=== PATIENT | male | born 1975 | race Caucasian/White ===

== ENCOUNTER 2018-04-13 13:40 | Emergency (ER) | payer OTHER ==
--- NOTE | 2018-04-13 14:31 | ED ---
General Adult HPI - General Chief complaint: ENT Stated complaint: lt ear pain Time Seen by Provider: 04/13/18 13:59 Source: patient, RN notes reviewed Mode of arrival: ambulatory Limitations: no limitations - History of Present Illness Initial comments: 43-year-old male presents to the emergency department for a chief complaint of left ear pain 2 days. Patient admits to noticing drainage from the ear over the past 2 days. Patient denies any decreased hearing. Patient denies any recent swimming or hot tubs. Patient denies history of diabetes. Patient denies pain in the face and neck or head. Patient also states he has had a sore throat and some loss of voice for the past few months. Patient denies a history of seasonal ALLERGIES. Patient denies any difficulty breathing or swallowing. Patient denies any fevers or chills at home. No rashes. Patient has no other complaints at this time including shortness of breath, chest pain, abdominal pain, nausea or vomiting, headache, or visual changes. - Related Data Previous Rx's Medication Instructions Recorded Ibuprofen [Motrin] 600 mg PO Q6HR PRN #20 tab 04/13/18 Loratadine [Claritin] 10 mg PO DAILY #20 tab 04/13/18 Ofloxacin 0.3% Ophth Soln [Ocuflox 10 drops LEFT EAR BID 14 Days ml 04/13/18 Ophth Soln] Allergies Allergy/AdvReac Type Severity Reaction Status Date / Time No Known Allergies Allergy Verified 04/13/18 14:02 Review of Systems ROS Statement: Those systems with pertinent positive or pertinent negative responses have been documented in the HPI. ROS Other: All systems not noted in ROS Statement are negative. Past Medical History Past Medical History: No Reported History History of Any Multi-Drug Resistant Organisms: None Reported Past Surgical History: No Surgical Hx Reported Past Psychological History: No Psychological Hx Reported Smoking Status: Current every day smoker Past Alcohol Use History: None Reported Past Drug Use History: None Reported General Exam Limitations: no limitations General appearance: alert, in no apparent distress Head exam: Present: atraumatic, normocephalic, normal inspection Eye exam: Present: normal appearance ENT exam: Present: normal oropharynx (Oropharynx patent, nonerythematous. Uvula midline. No tonsillar exudates noted bilaterally. No enlarged tonsils.) , mucous membranes moist, TM's normal bilaterally (Tympanic membrane is visualized in the left ear and appears nonerythematous. No erythema noted of the right tympanic membrane as well.). Absent: normal external ear exam ( Patient does have a slightly swollen left ear canal. Mild tenderness to palpation of the tragus. No pain with palpation or traction of the pinna. No drainage noted at this time from the left ear canal.) Neck exam: Present: normal inspection, full ROM. Absent: tenderness, meningismus, lymphadenopathy Respiratory exam: Present: normal lung sounds bilaterally. Absent: respiratory distress, wheezes, rales, rhonchi, stridor Cardiovascular Exam: Present: regular rate, normal rhythm, normal heart sounds. Absent: systolic murmur, diastolic murmur, rubs, gallop, clicks Course Vital Signs 04/13/18 13:59 Temperature 98.7 F Pulse Rate 70 Respiratory 16 Rate Blood Pressure 142/90 O2 Sat by Pulse 99 Oximetry Medical Decision Making - Medical Decision Making 43-year-old male presents to the emergency department for a chief complaint of left ear pain 2 days. Patient admits to some drainage from the right ear over the past 2 days. Patient denies fevers or chills at home. Patient denies pain within the head or face. On exam ear canal does appear mildly edematous but is patent. Tympanic membrane is visualized and is non-erythematous and intact. No drainage at this time. No pain in the mastoid. Patient does have some tenderness with palpation of the tragus, no tenderness with palpation or traction of the pinna. No history of diabetes. Patient likely has an otitis externa. External ear does not appear swollen besides in the ear canal. No signs of cellulitis within the ear canal or external ear. Patient will be treated for otitis externa with antibiotic drops. Patient was also swabbed for strep as he complains of a sore throat. Throat appears nonerythematous, patent , no tonsillar exudates. No difficulty swallowing or breathing. Patient will follow-up with ear nose throat 4 sore throat. He will be also given Claritin if that helps. He is aware he is to return to the emergency department if he has any worsening symptoms with the ear or throat including difficulty swallowing or fever. - Lab Data Lab Results 04/13/18 Range/Units 14:06 Group A Strep Rapid Negative (Negative) Disposition Clinical Impression: Otitis externa Disposition: HOME SELF-CARE Condition: Good Instructions: Otitis Externa (ED) Additional Instructions: Please use ear drops as directed. Please take Claritin to see if that helps with the throat. Use Motrin or Tylenol for pain relief. Follow-up with ear nose throat physician in 1-2 days. If symptoms worsen or you began to experience worsening pain, fever, or difficulty swallowing return to the emergency department. Prescriptions: Ibuprofen [Motrin] 600 mg PO Q6HR PRN #20 tab PRN Reason: Pain Loratadine [Claritin] 10 mg PO DAILY #20 tab Ofloxacin 0.3% Ophth Soln [Ocuflox Ophth Soln] 10 drops LEFT EAR BID 14 Days ml Is patient prescribed a controlled substance at d/c from ED?: No Referrals: Silas Cruz MD [STAFF PHYSICIAN] - 1-2 days Troy Barrios MD [STAFF PHYSICIAN] - 1-2 days Time of Disposition: 14:48
[2018-04-13 14:32] VITALS: BP 142/90; PULSE 70; RESP 16; TEMP 98.7
== END 2018-04-13 14:59 | disposition home or self-care (01) ==
LOC: EC 13:40
DX: H60.92 Unspecified otitis externa, left ear (principal); F17.200 Nicotine dependence, unspecified, uncomplicated
CPT/HCPCS: 87081; 87430; 99283

== ENCOUNTER 2018-05-11 06:07 | Emergency (ER) | payer OTHER ==
[2018-05-11] MEDS ORDERED: ASPIRIN 81 MG PO STA (06:14)
[2018-05-11] MEDS ORDERED: NITROGLYCERIN SL TABS 0.4 MG TAB SUBLINGUAL STA (06:19)
--- NOTE | 2018-05-11 06:21 | ED ---
Chest Pain HPI - General Chief Complaint: Chest Pain Stated Complaint: chest pain Time Seen by Provider: 05/11/18 06:14 Source: patient, RN notes reviewed Mode of arrival: ambulatory Limitations: no limitations - History of Present Illness Initial Comments: This is a 43-year-old male presents emergency Department with chief complaint of right-sided chest pain. Patient states started around 2 AM. He states it did awaken him from his sleep. Patient states that hurts when he takes a deep inspiration or moves. 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 He has no prior cardiac disease denies hypertension hyperlipidemia and diabetes. He is a daily smoker. Patient states that he has no abdominal pain denies any nausea vomiting no diaphoretic episodes denies any back pain. Patient states he has no history of PE or DVT no recent traveling. He states that he essentially has no shortness breath other than her stated deep breath. - Related Data Previous Rx's Medication Instructions Recorded Ibuprofen [Motrin] 600 mg PO Q6HR PRN #20 tab 04/13/18 Loratadine [Claritin] 10 mg PO DAILY #20 tab 04/13/18 Ofloxacin 0.3% Ophth Soln [Ocuflox 10 drops LEFT EAR BID 14 Days ml 04/13/18 Ophth Soln] Ibuprofen [Motrin] 600 mg PO Q8HR PRN #30 tab 05/11/18 Allergies Allergy/AdvReac Type Severity Reaction Status Date / Time Pertussis Vaccines Allergy Unknown Verified 05/11/18 06:12 Review of Systems ROS Statement: Those systems with pertinent positive or pertinent negative responses have been documented in the HPI. ROS Other: All systems not noted in ROS Statement are negative. EKG Findings - EKG Comments: EKG Findings:: EKG performed at 6:17 normal sinus rhythm with a rate of 62 DE 132 QRS 86 QTC/QTC 418/424 Past Medical History Past Medical History: No Reported History History of Any Multi-Drug Resistant Organisms: None Reported Past Surgical History: No Surgical Hx Reported Past Psychological History: No Psychological Hx Reported Smoking Status: Current every day smoker Past Alcohol Use History: Occasional Past Drug Use History: None Reported General Exam Limitations: no limitations General appearance: alert, in no apparent distress Head exam: Present: atraumatic, normocephalic, normal inspection Eye exam: Present: normal appearance, PERRL, EOMI. Absent: scleral icterus, conjunctival injection, periorbital swelling ENT exam: Present: normal exam, normal oropharynx, mucous membranes moist Neck exam: Present: normal inspection, full ROM. Absent: tenderness, meningismus, lymphadenopathy Respiratory exam: Present: normal lung sounds bilaterally, chest wall tenderness (Moderate right anterior chest wall tenderness). Absent: respiratory distress, wheezes, rales, rhonchi, stridor Cardiovascular Exam: Present: regular rate, normal rhythm, normal heart sounds. Absent: systolic murmur, diastolic murmur, rubs, gallop, clicks GI/Abdominal exam: Present: soft, normal bowel sounds. Absent: distended, tenderness, guarding, rebound, rigid Course Vital Signs 05/11/18 05/11/18 05/11/18 06:09 06:48 07:32 Temperature 97.8 F Pulse Rate 65 55 L 52 L Respiratory 18 20 16 Rate Blood Pressure 132/89 128/98 136/94 O2 Sat by Pulse 100 99 100 Oximetry - Reevaluation(s) Reevaluation #1: 05/11/18 07:15 Patient was reevaluated and updated and results at this time. Patient's abdomen was reexamined states has no tenderness the right upper quadrant was informed his liver enzymes are elevated he states he does drink on a daily basis he stated it is in moderation though. Chest Pain [facility] 43-year-old male present emergency department for right-sided chest pain. This is reproducible chest pain worse with deep inspiration. His d-dimer is negative chest x-rays unremarkable. Patient's troponin is negative at this time EKG is unremarkable. This is felt to be chest wall pain consistent with costochondritis. Patient was treated with anti-inflammatories. He was informed his liver enzymes are elevated he'll have them recheck in one week advised to refrain from any Tylenol or alcohol use. Disposition Clinical Impression: Chest wall pain, Costochondritis, acute Disposition: HOME SELF-CARE Condition: Stable Instructions: Costochondritis (ED), Chest Pain (ED) Additional Instructions: Please return to the Emergency Department if symptoms worsen or any other concerns. Prescriptions: Ibuprofen [Motrin] 600 mg PO Q8HR PRN #30 tab PRN Reason: Pain Is patient prescribed a controlled substance at d/c from ED?: No Referrals: Karissa Ma MD [STAFF PHYSICIAN] - 1-2 days Time of Disposition: 07:36
[2018-05-11 06:36] LABS: Basophils % (A) 0 %; Eosinophils # (A) 0.2 k/uL (0-0.7); Eosinophils % (A) 3 %; HGB 15.3 gm/dL (13.0-17.5); Lymphocytes # (A) 1.5 k/uL (1.0-4.8); Lymphocytes % (A) 26 %; MCH 33.7 pg (25.0-35.0); MCHC 33.9 g/dL (31.0-37.0); MCV 99.3 fL (80.0-100.0); Mean Platelet Volume 7.8; Monocytes # (A) 0.5 k/uL (0-1.0); Monocytes % (A) 9 %; Neutrophils # (A) 3.5 k/uL (1.3-7.7); Neutrophils % (A) 59 %; Platelet Count 125 k/uL (150-450); RBC 4.53 m/uL (4.30-5.90); RDW 13.1 % (11.5-15.5); WBC 5.8 k/uL (3.8-10.6)
[2018-05-11 06:49] LABS: D-Dimer 0.23 mg/L FEU (<0.60); INR 1.1 (<1.2); Partial Thromboplastin Time 22.3 sec (22.0-30.0); Prothrombin Time 10.4 sec (9.0-12.0)
[2018-05-11 06:50] LABS: ALT 224 U/L (21-72); AST 199 U/L (17-59); Albumin 4.3 g/dL (3.5-5.0); Alkaline Phosphatase 65 U/L (38-126); Anion Gap 6 mmol/L; Blood Urea Nitrogen 18 mg/dL (9-20); Calcium 9.5 mg/dL (8.4-10.2); Carbon Dioxide 28 mmol/L (22-30); Chloride 106 mmol/L (98-107); Glucose 103 mg/dL (74-99); Magnesium 1.8 mg/dL (1.6-2.3); Potassium 4.3 mmol/L (3.5-5.1); Sodium 140 mmol/L (137-145); Total Bilirubin 0.3 mg/dL (0.2-1.3); Total Protein 7.9 g/dL (6.3-8.2)
[2018-05-11 06:59] LABS: Creatine Kinase 83 U/L (55-170)
[2018-05-11 07:11] LABS: Creatine Kinase MB 0.9 ng/mL (0.0-2.4); Troponin I <0.012 ng/mL (0.000-0.034)
[2018-05-11] MEDS ORDERED: KETOROLAC 30 MG/ML 1 ML VIAL IVP STA (07:15)
--- NOTE | 2018-05-11 07:29 | XR ---
EXAMINATION TYPE: XR chest 2V DATE OF EXAM: 05/11/2018 COMPARISON: 09/13/2013 HISTORY: 43-year-old male with chest pain and difficulty breathing today TECHNIQUE: PA and lateral views FINDINGS: The cardiomediastinal silhouette, aorta, and pulmonary vasculature are within normal limits. Increase d retrosternal clear space suggesting hyperinflation. Lungs and pleural spaces are clear. IMPRESSION: Hyperinflation could relate to depth of inspiration or underlying emphysema. Clinically correlate. Ot herwise, no acute cardiopulmonary process.
[2018-05-11 07:33] VITALS: BP 136/94; PULSE 52; RESP 16
[2018-05-11 07:53] VITALS: TEMP 98
== END 2018-05-11 07:52 | disposition home or self-care (01) ==
LOC: EC 06:07
DX: M94.0 Chondrocostal junction syndrome [Tietze] (principal); R94.5 Abnormal results of liver function studies; F17.200 Nicotine dependence, unspecified, uncomplicated; Z88.7 Allergy status to serum and vaccine
CPT/HCPCS: 99285; 96374; 36415; 93005; 85379; 80053; 82550; 82553; 83735; 84484; 85025; 85610; 85730; 71046; J1885

== ENCOUNTER 2021-06-06 11:06 | Emergency (ER) | payer OTHER ==
[2021-06-06 11:45] VITALS: BP 147/92; PULSE 70; RESP 18; TEMP 98
--- NOTE | 2021-06-06 12:24 | XR ---
EXAMINATION TYPE: XR hand complete RT DATE OF EXAM: 06/06/2021 COMPARISON: NONE HISTORY: Pain TECHNIQUE: Three views are submitted. FINDINGS: The osseous structures are intact. The joint spaces are preserved and there is no acute fracture or dislocation. IMPRESSION: 1. No definite acute fracture or dislocation if symptoms persist, follow-up study in 7 to 10 days wo uld be suggested
--- NOTE | 2021-06-06 12:45 | ED ---
General Adult HPI - General Chief complaint: Extremity Injury, Upper Stated complaint: rt hand injury Time Seen by Provider: 06/06/21 11:52 Source: patient Mode of arrival: ambulatory Limitations: no limitations - History of Present Illness Initial comments: 46-year-old male presents to emergency department with a chief complaint of right hand injury. This occurred about one hour prior to arrival. Patient reports he smashed his right hand while he was working on a deck. Patient reports most of the pain is located in his third and fourth digits. States he is not able to fully close a but is able to move it. Denies any numbness or tingling. Denies any pain in the mid hand of the region. Denies any wrist pain or injury. Denies any associated ecchymosis. - Related Data Previous Rx's Medication Instructions Recorded Ibuprofen [Motrin] 600 mg PO Q6HR PRN #20 tab 04/13/18 Loratadine [Claritin] 10 mg PO DAILY #20 tab 04/13/18 Ofloxacin 0.3% Ophth Soln [Ocuflox 10 drops LEFT EAR BID 14 Days ml 04/13/18 Ophth Soln] Ibuprofen [Motrin] 600 mg PO Q8HR PRN #30 tab 05/11/18 Allergies Allergy/AdvReac Type Severity Reaction Status Date / Time Pertussis Vaccines Allergy Unknown Verified 06/06/21 11:45 Review of Systems ROS Statement: Those systems with pertinent positive or pertinent negative responses have been documented in the HPI. ROS Other: All systems not noted in ROS Statement are negative. Past Medical History Past Medical History: No Reported History History of Any Multi-Drug Resistant Organisms: None Reported Past Surgical History: No Surgical Hx Reported Past Psychological History: No Psychological Hx Reported Smoking Status: Current every day smoker Past Alcohol Use History: Occasional Past Drug Use History: None Reported General Exam Limitations: no limitations General appearance: alert, in no apparent distress Head exam: Present: atraumatic, normocephalic, normal inspection Eye exam: Present: normal appearance, PERRL, EOMI Pupils: Present: normal accommodation ENT exam: Present: normal exam, normal oropharynx, mucous membranes moist Neck exam: Present: normal inspection, full ROM. Absent: tenderness, lymphadenopathy Respiratory exam: Present: normal lung sounds bilaterally. Absent: respiratory distress Cardiovascular Exam: Present: regular rate, normal rhythm, normal heart sounds Extremities exam: Present: normal inspection, tenderness (Tenderness at the third and fourth digits of the right hand. No scaphoid tenderness. No tenderness along the middle of the hand on the MCP joints.), normal capillary refill. Absent: full ROM (Limited range of motion in the third and fourth digits. Full range of motion and the rest), pedal edema, joint swelling, calf tenderness Back exam: Present: normal inspection, full ROM. Absent: tenderness Neurological exam: Present: alert, oriented X3 Psychiatric exam: Present: normal affect, normal mood Skin exam: Present: warm, dry, intact, normal color Course Vital Signs 06/06/21 11:43 Temperature 98.0 F Pulse Rate 70 Respiratory 18 Rate Blood Pressure 147/92 O2 Sat by Pulse 97 Oximetry Medical Decision Making - Medical Decision Making 46-year-old male presents to emergency Department with chief complaint right hand injury. Physical examination, most of the pain is started the third and fourth digits. He is otherwise neurovascularly intact. X-ray of the right hand is unremarkable. Patient suffered a contusion to the hand. Advised to follow with his primary care physician or data capture specialist. Return parameters were thoroughly discussed with patient was up standing and agreeable. Disposition Clinical Impression: Injury of right hand Disposition: HOME SELF-CARE Condition: Stable Instructions (If sedation given, give patient instructions): Hand Sprain (ED) Additional Instructions: Please return to the Emergency Department if symptoms worsen or any other concerns. Is patient prescribed a controlled substance at d/c from ED?: No Referrals: None,Stated [Primary Care Provider] - 1-2 days Time of Disposition: 12:45
== END 2021-06-06 13:00 | disposition home or self-care (01) ==
LOC: EC 11:06
DX: S69.91XA Unspecified injury of right wrist, hand and finger(s), initial encounter (principal); F17.200 Nicotine dependence, unspecified, uncomplicated; Z79.1 Long term (current) use of non-steroidal anti-inflammatories (NSAID); Z79.899 Other long term (current) drug therapy; W22.8XXA Striking against or struck by other objects, initial encounter; Y99.0 Civilian activity done for income or pay
CPT/HCPCS: 99283

== ENCOUNTER 2022-07-16 10:56 | Inpatient (IN) | payer OTHER ==
--- NOTE | 2022-07-16 12:36 | XR ---
EXAMINATION TYPE: XR KUB DATE OF EXAM: 07/16/2022 COMPARISON: NONE HISTORY: Pain TECHNIQUE: Single supine KUB image of the abdomen is obtained FINDINGS: Small bowel demonstrates no evidence for dilatation or air fluid levels. Gas and fecal material is seen in non-distended colon. No convincing evidence for pneumoperitoneum. No unusual calcifications. The lung bases are clear. The osseous structures are intact. IMPRESSION: 1. Overall nonobstructive bowel gas pattern.
[2022-07-16 12:44] LABS: Basophils % (A) 0 %; Eosinophils # (A) 0.1 k/uL (0-0.7); Eosinophils % (A) 2 %; HCT 46.2 % (39.0-53.0); HGB 15.7 gm/dL (13.0-17.5); Lymphocytes # (A) 2.1 k/uL (1.0-4.8); Lymphocytes % (A) 33 %; MCH 34.9 pg (25.0-35.0); MCHC 33.9 g/dL (31.0-37.0); MCV 102.8 fL (80.0-100.0); Macrocytosis Slight; Monocytes # (A) 0.5 k/uL (0-1.0); Monocytes % (A) 8 %; Neutrophils # (A) 3.5 k/uL (1.3-7.7); Neutrophils % (A) 54 %; Platelet Count 104 k/uL (150-450); RDW 13.2 % (11.5-15.5); WBC 6.4 k/uL (3.8-10.6)
[2022-07-16 12:51] LABS: ALT 159 U/L (4-49); AST 157 U/L (17-59); African American GFR (CKD) >90 (>60 ml/min/1.73 sqM); Albumin 4.1 g/dL (3.5-5.0); Alkaline Phosphatase 93 U/L (38-126); Anion Gap 13 mmol/L; Blood Urea Nitrogen 18 mg/dL (9-20); Calcium 8.8 mg/dL (8.4-10.2); Carbon Dioxide 26 mmol/L (22-30); Chloride 100 mmol/L (98-107); Glucose 99 mg/dL (74-99); Non-African American GFR(CKD) >90 (>60 ml/min/1.73 sqM); Potassium 3.9 mmol/L (3.5-5.1); Sodium 139 mmol/L (137-145); Total Bilirubin 0.5 mg/dL (0.2-1.3); Total Protein 7.6 g/dL (6.3-8.2)
[2022-07-16 13:06] LABS: Amylase 392 U/L (30-110)
[2022-07-16 13:18] LABS: Lipase 12006 U/L (23-300)
--- NOTE | 2022-07-16 14:30 | ED ---
Abdominal Pain HPI - General Chief Complaint: Abdominal Pain Stated Complaint: rt sided pain Time Seen by Provider: 07/16/22 13:21 Source: patient, RN notes reviewed Mode of arrival: ambulatory Limitations: no limitations - History of Present Illness Initial Comments: 47-year-old male with a benign past medical history who does complain of abdominal pain going on for about a week. He states that sharp and severe in nature mostly right upper quadrant no overt nausea vomiting he states pain is becoming unbearable. He does admit to drinking alcohol between 1 and 2 pints today perhaps up to a fifth a day he also smokes one pack cigarettes per day. Prior history of any GI abnormality no history of alcohol withdrawal no history of any intra-abdominal pathologies that he is aware of. No prior history of pancreatitis and dysuria hematuria. MD Complaint: abdominal pain - Related Data Previous Rx's Medication Instructions Recorded Ibuprofen [Motrin] 600 mg PO Q6HR PRN #20 tab 04/13/18 Loratadine [Claritin] 10 mg PO DAILY #20 tab 04/13/18 Ofloxacin 0.3% Ophth Soln [Ocuflox 10 drops LEFT EAR BID 14 Days ml 04/13/18 Ophth Soln] Ibuprofen [Motrin] 600 mg PO Q8HR PRN #30 tab 05/11/18 Allergies Allergy/AdvReac Type Severity Reaction Status Date / Time Pertussis Vaccines Allergy Unknown Verified 07/16/22 11:27 Review of Systems ROS Statement: Those systems with pertinent positive or pertinent negative responses have been documented in the HPI. ROS Other: All systems not noted in ROS Statement are negative. Past Medical History Past Medical History: No Reported History History of Any Multi-Drug Resistant Organisms: None Reported Past Surgical History: No Surgical Hx Reported, Hernia Repair Past Psychological History: No Psychological Hx Reported Smoking Status: Current every day smoker Past Alcohol Use History: Occasional Past Drug Use History: None Reported General Exam - General Exam Comments Initial Comments: This is a well-developed well-nourished awake alert oriented 6 male Limitations: no limitations General appearance: alert, anxious, in distress Head exam: Present: atraumatic, normocephalic, normal inspection Eye exam: Present: normal appearance, PERRL, EOMI. Absent: scleral icterus, conjunctival injection, periorbital swelling ENT exam: Present: normal exam, mucous membranes moist Neck exam: Present: normal inspection, full ROM. Absent: tenderness, meningismus, lymphadenopathy Respiratory exam: Present: normal lung sounds bilaterally. Absent: respiratory distress, wheezes, rales, rhonchi, stridor Cardiovascular Exam: Present: regular rate, normal rhythm, normal heart sounds. Absent: systolic murmur, diastolic murmur, rubs, gallop, clicks GI/Abdominal exam: Present: soft, tenderness (Right upper quadrant tenderness palpation about her guarding no rebound), normal bowel sounds. Absent: distended, guarding, rebound, rigid Rectal exam: Present: deferred Extremities exam: Present: normal inspection, full ROM, normal capillary refill. Absent: tenderness, pedal edema, joint swelling, calf tenderness Back exam: Present: normal inspection Neurological exam: Present: alert, oriented X3, CN II-XII intact Psychiatric exam: Present: normal affect, anxious Skin exam: Present: warm, dry, intact, normal color. Absent: rash Course Vital Signs 07/16/22 07/16/22 11:24 14:01 Temperature 98.3 F Pulse Rate 65 65 Respiratory 18 18 Rate Blood Pressure 152/77 142/93 O2 Sat by Pulse 99 98 Oximetry Procedures - Phillips Protocol (Time Out) Nurse: Aldo Capellan Medical Decision Making - Medical Decision Making I did discuss the findings with patient as well as Dr. Gaspar. Patient does have evidence of acute pancreatitis also alcohol abuse. Patient be admitted with GI consultation - Lab Data Result diagrams: 07/16/22 12:28 07/16/22 12:28 Lab Results 07/16/22 07/16/22 Range/Units 12:28 12:28 WBC 6.4 (3.8-10.6) k/uL RBC 4.50 (4.30-5.90) m/uL Hgb 15.7 (13.0-17.5) gm/dL Hct 46.2 (39.0-53.0) % MCV 102.8 H (80.0-100.0) fL MCH 34.9 (25.0-35.0) pg MCHC 33.9 (31.0-37.0) g/dL RDW 13.2 (11.5-15.5) % Plt Count 104 L (150-450) k/uL MPV 9.0 Neutrophils % 54 % Lymphocytes % 33 % Monocytes % 8 % Eosinophils % 2 % Basophils % 0 % Neutrophils # 3.5 (1.3-7.7) k/uL Lymphocytes # 2.1 (1.0-4.8) k/uL Monocytes # 0.5 (0-1.0) k/uL Eosinophils # 0.1 (0-0.7) k/uL Basophils # 0.0 (0-0.2) k/uL Macrocytosis Slight Sodium 139 (137-145) mmol/L Potassium 3.9 (3.5-5.1) mmol/L Chloride 100 (98-107) mmol/L Carbon Dioxide 26 (22-30) mmol/L Anion Gap 13 mmol/L BUN 18 (9-20) mg/dL Creatinine 1.00 (0.66-1.25) mg/dL Est GFR (CKD-EPI)AfAm >90 (>60 ml/min/1.73 sqM) Est GFR (CKD-EPI)NonAf >90 (>60 ml/min/1.73 sqM) Glucose 99 (74-99) mg/dL Calcium 8.8 (8.4-10.2) mg/dL Total Bilirubin 0.5 (0.2-1.3) mg/dL AST 157 H (17-59) U/L ALT 159 H (4-49) U/L Alkaline Phosphatase 93 (38-126) U/L Total Protein 7.6 (6.3-8.2) g/dL Albumin 4.1 (3.5-5.0) g/dL Amylase 392 H* (30-110) U/L Lipase 41502 H (23-300) U/L - Radiology Data Radiology results: report reviewed (I did review the KUB imaging and report no acute findings ultrasound pending at this time), image reviewed Disposition Clinical Impression: Abdominal pain, Acute pancreatitis, Alcohol abuse, Nicotine dependence Disposition: ADMITTED IP TO THIS [facility] Condition: Fair Referrals: None,Stated [Primary Care Provider] - 1-2 days Decision Date: 07/16/22 Decision Time: 14:33
[2022-07-16] MEDS ORDERED: HYDROmorphone 1 MG/ML 1 ML SYRINGE IVP STA (14:33)
[2022-07-16] MEDS ORDERED: NALOXONE 0.4 MG/ML 1 ML VIAL IV PRN (14:34)
[2022-07-16] MEDS ORDERED: ONDANSETRON 4 MG/2 ML VIAL IVP PRN (14:34)
[2022-07-16] MEDS ORDERED: THIAMINE 100 MG/ML 2 ML VIAL IM STA (14:35)
[2022-07-16] MEDS ORDERED: LORazepam 2 MG/ML INJ IV PRN ×3 (14:35)
[2022-07-16] MEDS ORDERED: NICOTINE 21MG/24HR PATCH TRANSDERM STA (14:36)
--- NOTE | 2022-07-16 14:41 | US ---
EXAMINATION TYPE: US gallbladder DATE OF EXAM: 07/16/2022 COMPARISON: NONE CLINICAL HISTORY: Right upper quadrant pain with pancreatitis. TECHNIQUE: Multiple sonographic images of the right upper quadrant are obtained. FINDINGS: EXAM MEASUREMENTS: Liver Length: 16.2 cm Gallbladder Wall: 0.2 cm CBD: 0.3 cm Right Kidney: 10.9 x 4.5 x 5.3 cm [employer]ERNOR [employer] NOTES: Pancreas: Tail obscured by overlying bowel gas Liver: wnl Gallbladder: possible small amount of sludge Evidence for sonographic Maya's sign: no CBD: wnl Right Kidney: inferior pole obscured by overlying bowel gas IMPRESSION: 1. Gallbladder sludge.
[2022-07-16] MEDS: SODIUM CHLORIDE 0.9% 1,000 ML IV SCH (14:50)
[2022-07-16] MEDS: THIAMINE 100 MG TAB PO SCH (18:07)
[2022-07-16] MEDS: HYDROmorphone 0.5 MG/0.5 ML SYRINGE IVP PRN (20:26)
[2022-07-17] MEDS: SODIUM CHLORIDE 0.9% 1,000 ML IV SCH (04:57)
[2022-07-17 07:45] VITALS: TEMP 98.4
[2022-07-17] MEDS: HYDROmorphone 0.5 MG/0.5 ML SYRINGE IVP PRN (07:58)
[2022-07-17] MEDS: THIAMINE 100 MG TAB PO SCH (07:58)
[2022-07-17] MEDS ORDERED: PANTOPRAZOLE 40 MG/10 ML VIAL IV SCH (09:00)
--- NOTE | 2022-07-17 11:04 | P.HPIM ---
History of Present Illness H&P Date: 07/16/22 Chief Complaint: Abdominal pain Patient is a 47-year-old male with a known history of daily alcohol use, currently every day smoker and marijuana use an GERD presents to ER with complaints of abdominal pain. Past 1 week. Abdominal pain is mainly in the epigastric region and sharp radiating to the back and to the right upper quadrant. Assessment with nausea and ulcers of vomiting. Patient has been drinking 1-2 pints of alcohol on a daily basis and also smokes about 1 pack per day. Denied any prior history of pancreatitis. Denied any diarrhea. No headache or dizziness. No fever no chills. No cough or sputum production. No chest pain or shortness of breath. Denied any dysuria or hematuria. KUB x-ray showed overall nonobstructive bowel gas pattern. Ultrasound gallbladder showed gallbladder sludge. Laboratory data showed a 6.4 hemoglobin 15.7 platelets 104 and MCV 102.8 Sodium 139 potassium 3.9 chloride 100 bicarb is 26 BUN 18 and creatinine 1.0 and AST 157 ALT 159, and alk phos 93 Lipase 12 006 and amylase 392 and serum alcohol is less than 10. Review of Systems Constitutional: Patient denies any fever or chills . No generalized weakness or weight loss. Abdomen: Patient does have abdominal pain associated nausea and no vomiting no diarrhea.. Cardiovascular: Patient denies any chest pain or short of breath no palpitations. Respiratory: patient denied any cough is from production. No shortness of b reath Neurologic: Patient denied any numbness or tingling headache. Musculoskeletal: Patient denies any complaints of joint swelling or deformity. Skin: Negative Psychiatric: Negative Endocrine: No heat or cold intolerance. No recent weight gain. Genitourinary: No dysuria or hematuria. All other 14 point ROS negative except the above Past Medical History Past Medical History: GERD/Reflux Additional Past Medical History / Comment(s): ETOH, current smoker History of Any Multi-Drug Resistant Organisms: None Reported Past Surgical History: Hernia Repair Additional Past Surgical History / Comment(s): 2 hernia repairs one on the right lower abdomen, one on the left lower abdomen. Past Anesthesia/Blood Transfusion Reactions: No Reported Reaction Past Psychological History: No Psychological Hx Reported Smoking Status: Current every day smoker Past Alcohol Use History: Daily, Heavy Past Drug Use History: Marijuana Additional Drug Use History / Comment(s): pt states he drinks 2 pints to 1/5th of black velvet whiskey per day, last drink was yesterday 07/15. Pt states he only drank about 1/2 a pint to a pint yesterday and the day before because of the abdominal pain he was having. Smokes marijuana daily - Past Family History Father Family Medical History: Myocardial Infarction ([place]) Additional Family Medical History / Comment(s): Father and grandfather both from heart attacks Medications and Allergies Home Medications Medication Instructions Recorded Confirmed Type No Known Home Medications 07/16/22 07/16/22 History Allergies Allergy/AdvReac Type Severity Reaction Status Date / Time Pertussis Vaccines Allergy Unknown Verified 07/16/22 15:39 Physical Exam Vitals: Vital Signs Temp Pulse Pulse Resp BP BP Pulse Ox 07/16/22 20:00 98.0 F 53 L 16 144/87 96 07/16/22 16:04 98.4 F 64 18 146/97 97 07/16/22 14:01 65 18 142/93 98 07/16/22 11:24 98.3 F 65 18 152/77 99 Intake and Output 07/16/22 07/16/22 07/16/22 06:59 14:59 22:59 Intake Total 0 Balance 0 Intake: Oral 0 Other: # Voids 1 Weight 90.718 kg 90.718 kg PHYSICAL EXAMINATION: Patient is lying in the bed comfortably, no acute distress, awake alert and oriented.. HEENT: Normocephalic. Neck is supple. Pupils reactive. Nostrils clear. Oral cavity is moist. Neck reveals no JVD, carotid bruits, or thyromegaly. CHEST EXAMINATION: Trachea is central. Symmetrical expansion. Lung cheung clear to auscultation and percussion. CARDIAC: Normal S1, S2 with no gallops. No murmurs ABDOMEN: Soft. Bowel sounds normal. No organomegaly. No abdominal bruits. Epigastric abdominal tenderness. No guarding no rigidity. Extremities: reveal no edema. No clubbing or cyanosis Neurologically awake, alert, oriented x3 with well-coordinated movements. No focal deficits noted Skin: No rash or skin lesions. Psychiatric: Coperative. Nonsuicidal Musculoskeletal: No joint swelling or deformity. Normal range of motion. Results CBC & Chem 7: 07/16/22 12:28 07/16/22 12:28 Labs: Abnormal Lab Results - Last 24 Hours (Table) 07/16/22 07/16/22 Range/Units 12:28 12:28 MCV 102.8 H (80.0-100.0) fL Plt Count 104 L (150-450) k/uL AST 157 H (17-59) U/L ALT 159 H (4-49) U/L Amylase 392 H* (30-110) U/L Lipase 35905 H (23-300) U/L Thrombosis Risk Factor Assmnt - DVT/VTE Prophylaxis DVT/VTE Prophylaxis: Pharmacologic Prophylaxis ordered - Choose All That Apply Each Factor Represents 1 point: Age 41-60 years, Obesity (BMI >25) Thrombosis Risk Factor Assessment Total Risk Factor Score: 2 Thrombosis Risk Factor Assessment Level: Low Risk Assessment and Plan Assessment: Acute pancreatitis likely alcohol-related Macrocytosis and thrombocytopenia secondary to chronic alcohol use GERD Ongoing nicotine addiction Alcohol abuse Marijuana use DVT prophylaxis with heparin subcu Plan: Patient be current on IV hydration and pain management and nothing by mouth until pain improves. IN the abdomen showed gallbladder sludge. Follow-up closely and CBC and CMP tomorrow. Smoking cessation and alcohol abstinence has been counseled extensively.
[2022-07-17 11:13] LABS: African American GFR (CKD) 124.1 (60.0-200.0); Anion Gap 8.9 mmol/L (10.00-18.00); BUN/Creat Ratio 19.26 Ratio (12.00-20.00); Blood Urea Nitrogen 15.7 mg/dL (9.0-27.0); Calcium 8.2 mg/dL (8.7-10.3); Carbon Dioxide 23.7 mmol/L (20.0-27.5); Non-African American GFR(CKD) 107.1 (60.0-200.0)
[2022-07-17 12:57] LABS: Basophils # (A) 0.02 X 10*3/uL (0.00-0.10); Basophils % (A) 0.4 %; Eosinophils # (A) 0.12 X 10*3/uL (0.04-0.35); Eosinophils % (A) 2.5 %; HCT 41.8 % (39.6-50.0); HGB 14.9 g/dL (13.0-17.0); Immature Grans, Automated 0.2 %; Lymphocytes # (A) 2.23 X 10*3/uL (0.90-5.00); Lymphocytes % (A) 45.8 %; MCH 35.9 pg (27.0-32.0); MCHC 35.6 g/dL (32.0-37.0); MCV 100.7 fL (80.0-97.0); Monocytes # (A) 0.43 X 10*3/uL (0.20-1.00); Monocytes % (A) 8.8 %; NRBC Per 100 WBC 0 /100 WBCS (0.0-0.0); Neutrophils # (A) 2.06 X 10*3/uL (1.80-7.70); Neutrophils % (A) 42.3 %; Platelet Count 87 X 10*3/uL (140-440); RBC 4.15 X 10*6/uL (4.40-5.60); RDW 13.2 % (11.5-14.5); WBC 4.87 X 10*3/uL (4.50-10.00)
[2022-07-17 12:59] LABS: RBC Morphology NORMAL
[2022-07-17 14:16] VITALS: BP 134/92; PULSE 64; RESP 16
[2022-07-17 14:38] LABS: Total Bilirubin 0.6 mg/dL (0.30-1.20)
--- NOTE | 2022-07-17 16:39 | P.CONS ---
History of Present Illness - Reason for Consult Consult date: 07/17/22 Acute pancreatitis Requesting physician: Julio Correa - Chief Complaint Right upper quadrant/epigastric pain - History of Present Illness This is a pleasant 47-year-old male who presented to the emergency department yesterday morning with complaints of right upper quadrant/epigastric pain. Patient states it was sharp in nature and radiated to his back. Pain started on Friday or Friday and progressively has gotten worse. Had denied any nausea or vomiting associated with it. Denies any previous history of pancreatitis, no new medications and no history of gallbladder disease. Patient was noted to have elevated amylase and lipase consistent with pancreatitis. Gastroenterology was consulted for the above. Ultrasound of the gallbladder showed gallbladder sludge. CBD was within normal limits and no stones were noted. Total bilirubin 0.5 AST 157 ALT 159 alkaline phosphatase 93 amylase 392 on admission and lipase 1206. Patient does admit to being a daily drinker, drinks 2 pints to a fifth a day for the last 5-6 years. He is also occurring daily smoker. No other significant past medical history. Today he states pain has improved it is a 4 out of 5, no nausea or vomiting. He has been nothing by mouth except ice chips. WBC 4.8 hemoglobin 14.9 hematocrit 41 platelet count 87,000 sodium 138 potassium 4.0 BUN 15 creatinine 0.8 total bilirubin 0.6 AST 101 ALT 117 alkaline phosphatase 80 lipase 156 Review of Systems REVIEW OF SYSTEMS: CARDIOPULMONARY: No chest pain or shortness of breath. Gastrointestinal: Epigastric and right upper quadrant pain, radiating to back. No nausea or vomiting. No hematemesis, coffee-ground emesis. No rectal bleeding, or melena. GENITOURINARY: No dysuria or hematuria. MUSCULOSKELETAL: Reports normal range of motion. SKIN: No rashes. No jaundice. ENDOCRINE: No chills, fevers. No excessive weight gain or loss. No polydipsia or polyuria. PSYCHIATRIC: Unremarkable. NEUROLOGY: No change in mental status. Denies dizziness, headache. ENT: Vision unremarkable. CONSTITUTIONAL: No recent weight loss. No fever, chills, night sweats. Past Medical History Past Medical History: GERD/Reflux Additional Past Medical History / Comment(s): ETOH, current smoker History of Any Multi-Drug Resistant Organisms: None Reported Past Surgical History: Hernia Repair Additional Past Surgical History / Comment(s): 2 hernia repairs one on the right lower abdomen, one on the left lower abdomen. Past Anesthesia/Blood Transfusion Reactions: No Reported Reaction Past Psychological History: No Psychological Hx Reported Smoking Status: Current every day smoker Past Alcohol Use History: Daily, Heavy Past Drug Use History: Marijuana Additional Drug Use History / Comment(s): pt states he drinks 2 pints to 1/5th of black velvet whiskey per day, last drink was yesterday 07/15. Pt states he only drank about 1/2 a pint to a pint yesterday and the day before because of the abdominal pain he was having. Smokes marijuana daily - Past Family History Father Family Medical History: Myocardial Infarction ([place]) Additional Family Medical History / Comment(s): Father and grandfather both from heart attacks Medications and Allergies Home Medications Medication Instructions Recorded Confirmed Type Multivitamins, Thera [Multivitamin 1 tab PO DAILY #30 tablet 07/17/22 Rx (formulary)] Thiamine [Vitamin B-1] 100 mg PO DAILY #30 tab 07/17/22 Rx Allergies Allergy/AdvReac Type Severity Reaction Status Date / Time Pertussis Vaccines Allergy Unknown Verified 07/16/22 15:39 Physical Exam Vitals: Vital Signs Temp Pulse Pulse Resp BP BP Pulse Ox 07/17/22 08:04 56 L 17 07/17/22 07:44 98.4 F 56 L 17 163/103 98 07/17/22 01:43 97.7 F 54 L 16 123/78 99 07/16/22 20:00 98.0 F 53 L 16 144/87 96 07/16/22 16:04 98.4 F 64 18 146/97 97 07/16/22 14:01 65 18 142/93 98 07/16/22 11:24 98.3 F 65 18 152/77 99 Intake and Output 07/16/22 07/17/22 07/17/22 22:59 06:59 14:59 Intake Total 0 Balance 0 Intake: Oral 0 Other: Voiding Method Toilet Toilet Urinal Urinal # Voids 1 3 Weight 90.718 kg General appearance: The patient is alert, oriented, appears in no acute distress. HET: Head is normocephalic and atraumatic. Conjunctiva pink. Sclera anicteric. Neck: Supple without lymphadenopathy. Trachea midline. Heart: S1 S2. Regular rate and rhythm. Lungs: Clear to auscultation. Abdomen: Soft, mild right upper quadrant tenderness, nondistended with bowel sounds. No guarding or rigidity. Skin: No rashes. No jaundice. Extremities: Normal skin color and turgor. No pedal edema. Neurological: No focal deficits. Alert and oriented x3. Results CBC & Chem 7: 07/17/22 06:23 07/17/22 06:23 Labs: Abnormal Lab Results - Last 24 Hours (Table) 07/16/22 07/16/22 Range/Units 12:28 12:28 MCV 102.8 H (80.0-100.0) fL Plt Count 104 L (150-450) k/uL AST 157 H (17-59) U/L ALT 159 H (4-49) U/L Amylase 392 H* (30-110) U/L Lipase 36321 H (23-300) U/L Abdominal x-ray: report reviewed (Overall nonobstructive bowel gas pattern) US - abdomen: report reviewed (Gallbladder sludge, CBD 0.3 cm.) Assessment and Plan (1) Acute pancreatitis Narrative/Plan: 47-year-old male with a history of significant alcohol abuse. Patient a dmittedly drinks 2 pints to a fifth of liquor daily for last 5-6 years duration. Presented with acute onset of epigastric/right upper quadrant pain which progressively got worse. He came in for further evaluation was noted to have elevated AST, ALT as well as amylase and lipase consistent with acute pancreatitis. The patient's history of alcohol abuse likely were dealing with acute alcohol pancreatitis. Symptoms are now resolving. Discussed with patient importance of alcohol abstinence, smoking cessation. Current Visit: Yes Status: Acute Code(s): K85.90 - ACUTE PANCREATITIS WITHOUT NECROSIS OR INFECTION, UNSP SNOMED Code(s): 280706417 (2) Alcohol abuse Current Visit: Yes Status: Acute Code(s): F10.10 - ALCOHOL ABUSE, UNCOMPLICATED SNOMED Code(s): 78442093 (3) Nicotine dependence Current Visit: Yes Status: Acute Code(s): F17.200 - NICOTINE DEPENDENCE, UNSPECIFIED, UNCOMPLICATED SNOMED Code(s): 51380277 (4) Thrombocytopenia Narrative/Plan: Likely related to underlying liver disease from alcohol abuse Current Visit: Yes Status: Acute Code(s): D69.6 - THROMBOCYTOPENIA, UNSPECIFIED SNOMED Code(s): 105189985 Plan: 1. Continue symptomatic and supportive care 2. Advance diet slowly as tolerated, low-fat diet 3. Antiemetics as needed 4. Pain medication as needed 5. Alcohol as tendons 6. Smoking cessation 7. Encourage ambulation Thank you for this consultation, patient is cleared for discharge from gastroenterology. Discussed with patient advance diet slowly over the next 1 week duration with a low-fat diet. Will need outpatient follow-up in 2-[address]FTs. Dr[address] Demetri Hall I agree with the dictator's note, documented as a scribe by Briseida Kay.
--- NOTE | 2022-07-24 15:15 | P.DS ---
Providers Date of admission: 07/16/22 14:34 Expected date of discharge: 07/17/22 Attending physician: Dominga Gaspar Consults: 07/16/22 14:34 Consult Physician Routine Consulting Provider: Lornea Hall Consult Reason/Comments: Acute pancreatitis Do you want consulting provider notified?: Yes Primary care physician: Stated None Hospital Course: Discharge diagnosis Acute pancreatitis likely alcohol-related Macrocytosis and thrombocytopenia secondary to chronic alcohol use GERD Ongoing nicotine addiction Alcohol abuse Marijuana use DVT prophylaxis with heparin subcu Hospital course Patient is a 47-year-old male with a known history of daily alcohol use, currently every day smoker and marijuana use an GERD presents to ER with complaints of abdominal pain. Past 1 week. Abdominal pain is mainly in the epigastric region and sharp radiating to the back and to the right upper quadrant. Assessment with nausea and ulcers of vomiting. Patient has been drinking 1-2 pints of alcohol on a daily basis and also smokes about 1 pack per day. Denied any prior history of pancreatitis. Denied any diarrhea. No headache or dizziness. No fever no chills. No cough or sputum production. No chest pain or shortness of breath. Denied any dysuria or hematuria. KUB x-ray showed overall nonobstructive bowel gas pattern. Ultrasound gallbladder showed gallbladder sludge. Laboratory data showed a 6.4 hemoglobin 15.7 platelets 104 and MCV 102.8 Sodium 139 potassium 3.9 chloride 100 bicarb is 26 BUN 18 and creatinine 1.0 and AST 157 ALT 159, and alk phos 93 Lipase 12 006 and amylase 392 and serum alcohol is less than 10. Plan: Patient was on IV hydration and pain management and nothing by mouth until pain improves. IN the abdomen showed gallbladder sludge. Patient did improve clinically with the above management and is being discharged home today. Smoking cessation and alcohol abstinence has been counseled extensively. PHYSICAL EXAMINATION: Patient is lying in the bed comfortably, no acute distress, awake alert and oriented.. HEENT: Normocephalic. Neck is supple. Pupils reactive. Nostrils clear. Oral cavity is moist. Neck reveals no JVD, carotid bruits, or thyromegaly. CHEST EXAMINATION: Trachea is central. Symmetrical expansion. Lung cheung clear to auscultation and percussion. CARDIAC: Normal S1, S2 with no gallops. No murmurs ABDOMEN: Soft. Bowel sounds normal. No organomegaly. No abdominal bruits. Epigastric abdominal tenderness. No guarding no rigidity. Extremities: reveal no edema. No clubbing or cyanosis Neurologically awake, alert, oriented x3 with well-coordinated movements. No focal deficits noted Skin: No rash or skin lesions. Psychiatric: Coperative. Nonsuicidal Musculoskeletal: No joint swelling or deformity. Normal range of motion. Discharge vitals reviewed. Patient Condition at Discharge: Fair Plan - Discharge Summary Discharge Rx Participant: Yes New Discharge Prescriptions: New Multivitamins, Thera [Multivitamin (formulary)] 1 tab PO DAILY #30 tablet Thiamine [Vitamin B-1] 100 mg PO DAILY #30 tab Discharge Medication List Multivitamins, Thera [Multivitamin (formulary)] 1 tab PO DAILY #30 tablet 07/17/22 [Rx] Thiamine [Vitamin B-1] 100 mg PO DAILY #30 tab 07/17/22 [Rx] Follow up Appointment(s)/Referral(s): Lorena Hall MD [STAFF PHYSICIAN] - 07/23/22 3:30 pm None,Stated [Primary Care Provider] - 1-2 days Ambulatory/Diagnostic Orders: Comprehensive Metabolic Panel [LAB.AMB] Location: None Selected Patient Instructions/Handouts: Pancreatitis (DC) Discharge/Stand Alone Forms: AA Meetings [place], Outpatient Counseling, In Substance Abuse Facilities Discharge Disposition: HOME SELF-CARE
== END 2022-07-17 17:48 | disposition home or self-care (01) | DRG 440 ==
LOC: EC 10:56 → 4SSUR 14:34
PROVIDERS: ADMIT Internal Medicine; ATTEND Internal Medicine
DX: K85.20 Alcohol induced acute pancreatitis without necrosis or infection (principal); F10.10 Alcohol abuse, uncomplicated; F17.210 Nicotine dependence, cigarettes, uncomplicated; K21.9 Gastro-esophageal reflux disease without esophagitis; K70.9 Alcoholic liver disease, unspecified; D69.59 Other secondary thrombocytopenia; D75.89 Other specified diseases of blood and blood-forming organs; K82.8 Other specified diseases of gallbladder; Z28.310 Unvaccinated for COVID-19; Z88.7 Allergy status to serum and vaccine; Z28.21 Immunization not carried out because of patient refusal; Z56.0 Unemployment, unspecified; Z71.6 Tobacco abuse counseling; Z71.41 Alcohol abuse counseling and surveillance of alcoholic
CPT/HCPCS: 36415; 74018; 76705; 80048; 80053; 80320; 82150; 82247; 83690; 84075; 84450; 84460; 84478; 85025; 96372; 96374; 99285

== ENCOUNTER 2023-10-01 11:31 | Emergency (ER) | payer OTHER ==
[2023-10-01 11:57] VITALS: RESP 18
--- NOTE | 2023-10-01 12:02 | ED ---
General Adult HPI - General Source: patient, RN notes reviewed Mode of arrival: ambulatory Limitations: no limitations <Li Pickering - Last Filed: 10/01/23 12:01> <Edwardo Allen - Last Filed: 10/01/23 13:38> - General Chief complaint: Back Pain/Injury Stated complaint: kidney pain Time Seen by Provider: 10/01/23 12:00 - History of Present Illness Initial comments: 48 year old male presents emergency department chief complaint of bilateral flank pain and epigastric pain that started yesterday. Admits to vomiting this morning. He currently denies nausea or vomiting. (Li Pickering) Dictation was produced using Fluid dictation software. please excuse any grammatical, word or spelling errors. Chief Complaint: 48-year-old male presents to the emergency department for abdominal pain and back pain History of Present Illness:. 48-year-old male has past medical history of alcohol use. Also has history of pancreatitis. Presents emergency department for abdominal pain and bilateral kidney pain. States that his symptoms have been ongoing for the last 24 hours. Patient does drink alcohol regularly. Complains of some mild nausea. No diarrhea. Denies any fever or chills. No numbness or paresthesias to the lower extremities. The ROS documented in this emergency department record has been reviewed and confirmed by me. Those systems with pertinent positive or negative responses have been documented in the HPI. All other systems are other negative and/or noncontributory. (Edwardo Allen) - Related Data Previous Rx's Medication Instructions Recorded HYDROcodone/APAP 5-325MG [[place] 1 tab PO Q6HR PRN 3 Days #12 tab 10/01/23 5-325] Allergies Allergy/AdvReac Type Severity Reaction Status Date / Time Pertussis Vaccines Allergy Unknown Verified 12/17/22 17:29 Review of Systems ROS Other: All systems not noted in ROS Statement are negative. <Li Pickering - Last Filed: 10/01/23 12:01> ROS Other: All systems not noted in ROS Statement are negative. <Edwardo Allen - Last Filed: 10/01/23 13:38> ROS Statement: Those systems with pertinent positive or pertinent negative responses have been documented in the HPI. Past Medical History Past Medical History: GERD/Reflux Additional Past Medical History / Comment(s): ETOH, current smoker pancreatitis History of Any Multi-Drug Resistant Organisms: None Reported Past Surgical History: Hernia Repair Additional Past Surgical History / Comment(s): 2 hernia repairs one on the right lower abdomen, one on the left lower abdomen. Past Anesthesia/Blood Transfusion Reactions: No Reported Reaction Past Psychological History: No Psychological Hx Reported Smoking Status: Current every day smoker Past Alcohol Use History: Daily, Heavy Past Drug Use History: Marijuana - Past Family History Father Family Medical History: Myocardial Infarction ([place]) Additional Family Medical History / Comment(s): Father and grandfather both from heart attacks <Li Pickering - Last Filed: 10/01/23 12:01> General Exam Limitations: no limitations <Li Pickering - Last Filed: 10/01/23 12:01> <Edwardo Allen - Last Filed: 10/01/23 13:38> - General Exam Comments Initial Comments: Visual Physical Exam Vital signs reviewed General: Well-appearing, nontoxic, no acute distress. Head: Normocephalic, atraumatic Eyes: PERRLA, EOMI ENT: Airway patent Chest: Nonlabored breathing Skin: No visual rash, normal skin tone Neuro: Alert and oriented 3 Musculoskeletal: No gross abnormalities (Li Pickering) PHYSICAL EXAM: General Impression: Alert and oriented x3, not in acute distress HEENT: Normocephalic atraumatic, extra-ocular movements intact, pupils equal and reactive to light bilaterally, mucous membranes moist. Cardiovascular: Heart regular rate and rhythm Chest: Able to complete full sentences, no retractions, no tachypnea Abdomen: abdomen soft, palpatory epigastric tenderness, no Maya sign, no pain in McBurney's point, non-distended, no organomegaly Musculoskeletal: Pulses present and equal in all extremities, no peripheral triston a Motor: no focal deficits noted Neurological: CN II-XII grossly intact, no focal motor or sensory deficits noted Skin: Intact with no visualized rashes Psych: Normal affect and mood (Edwardo Allen) Course Vital Signs 10/01/23 11:52 Temperature 98.4 F Pulse Rate 72 Respiratory 18 Rate Blood Pressure 142/93 O2 Sat by Pulse 99 Oximetry Medical Decision Making <Li Pickering - Last Filed: 12/13/23 12:01> - Lab Data Result diagrams: 10/01/23 12:15 10/01/23 12:15 <Edwardo Allen - Last Filed: 10/01/23 13:38> - Medical Decision Making Quick note preformed by Li Pickering PA-C (Li Pickering) Was pt. sent in by a medical professional or institution (, [facility], CHOIR ACCOMPANIST, urgent care, hospital, or custodial...) When possible be specific @ -No Did you speak to anyone other than the patient for history (EMS, parent, family, police, friend...)? What history was obtained from this source @ -No Did you review nursing and triage notes (agree or disagree)? Why? @ -I reviewed and agree with nursing and triage notes Were old charts reviewed (outside hosp., previous admission, EMS record, old EKG, old radiological studies, urgent care reports/EKG's, custodial records)? Report findings @ -No old charts were reviewed Differential Diagnosis (chest pain, altered mental status, abdominal pain women, abdominal pain men, vaginal bleeding, musculoskeletal, weakness, fever, dyspnea, syncope, headache, dizziness, GI bleed, back pain, seizure, CVA, palpatations, mental health)? @ -Differential Abdominal Pain Men: Appendicitis, cholecystitis, diverticulosis, ischemic bowel, pancreatitis, hepatitis, UTI, gastroenteritis, AAA, incarcerated hernia, bowel obstruction, c onstipation, inflammatory bowel, hepatitis, peptic ulcer disease, splenic infarction, perforated viscus, testicular torsion, this is not meant to be an all-inclusive list EKG interpreted by me (3pts min.). @ -None done X-rays interpreted by me (1pt min.). @ -None done CT interpreted by me (1pt min.). @ -None done U/S interpreted by me (1pt. min.). @ -None done What testing was considered but not performed or refused? (CT, X-rays, U/S, labs)? Why? @ -None What meds were considered but not given or refused? Why? @ -None Did you discuss the management of the patient with other professionals (professionals i.e. NOAH Lugo, CHOIR ACCOMPANIST, lab, RT, psych nurse, manager social responsibility, live truck operator, teacher, admissions officer, manager of case management)? Give summary @ -No Was smoking cessation discussed for >3mins.? @ -No Was critical care preformed (if so, how long)? @ -No Were there social determinants of health that impacted care today? How? (Homelessness, low income, unemployed, alcoholism, drug addiction, transportation, low edu. Level, literacy, decrease access to med. care, correction, rehab)? @ -No Was there de-escalation of care discussed even if they declined (Discuss DNR or withdrawal of care, Hospice)? DNR status @ -No What co-morbidities impacted this encounter? (DM, HTN, Smoking, COPD, CAD, Cancer, CVA, ARF, Chemo, Hep., AIDS, mental health diagnosis, sleep apnea, morbid obesity)? @ -None Was patient admitted / discharged? Hospital course, mention meds given and route, prescriptions, significant lab abnormalities, going to OR and other pertinent info. @ -48 Year-old male past mental history of alcohol abuse and history of pancreatitis presents to ER for abdominal pain. Vital signs upon arrival are within acceptable limits. Patient is well-appearing at bedside. Abdominal examination is benign. Patient is in no acute distress. Laboratory evaluation obtained. CBC, metabolic panel is unremarkable. Lipase negative. Urinalysis negative. Patient reevaluated at bedside at 1:36 PM and found to be in stable medical condition. Disposition options were discussed with patient. He is agreeable with discharge with prescription for analgesics. Undiagnosed new problem with uncertain prognosis? @ -No Drug Therapy requiring intensive monitoring for toxicity (Heparin, Nitro, Insulin, Cardizem)? @ -No Were any procedures done? @ -No Diagnosis/symptom? Acute, or Chronic, or Acute on Chronic? Uncomplicated (without systemic symptoms) or Complicated (systemic symptoms)? @ -Abdominal pain, no obvious source, no high-risk features Side effects of treatment? @ -No Exacerbation, Progression, or Severe Exacerbation? @ -No Poses a threat to life or bodily function? How? (Chest pain, [place], [place], pneumonia, PE, COPD, DKA, ARF, appy, cholecystitis, CVA, Diverticulitis, Homicidal, Suicidal, threat to staff... and all critical care pts) @ -No (Edwardo Allen) - Lab Data Lab Results 10/01/23 10/01/23 10/01/23 Range/Units 12:15 12:15 12:41 WBC 5.1 (3.8-10.6) k/uL RBC 4.50 (4.30-5.90) m/uL Hgb 16.1 (13.0-17.5) gm/dL Hct 46.8 (39.0-53.0) % MCV 104.1 H (80.0-100.0) fL MCH 35.8 H (25.0-35.0) pg MCHC 34.4 (31.0-37.0) g/dL RDW 13.4 (11.5-15.5) % Plt Count 101 L (150-450) k/uL MPV 8.8 Neutrophils % 46 % Lymphocytes % 40 % Monocytes % 8 % Eosinophils % 3 % Basophils % 1 % Neutrophils # 2.3 (1.3-7.7) k/uL Lymphocytes # 2.0 (1.0-4.8) k/uL Monocytes # 0.4 (0-1.0) k/uL Eosinophils # 0.1 (0-0.7) k/uL Basophils # 0.0 (0-0.2) k/uL Macrocytosis Slight Sodium 139 (137-145) mmol/L Potassium 4.2 (3.5-5.1) mmol/L Chloride 105 (98-107) mmol/L Carbon Dioxide 21 L (22-30) mmol/L Anion Gap 13 mmol/L BUN 19 (9-20) mg/dL Creatinine 0.73 (0.66-1.25) mg/dL Est GFR (CKD-EPI)AfAm >90 (>60 ml/min/1.73 sqM) Est GFR (CKD-EPI)NonAf >90 (>60 ml/min/1.73 sqM) Glucose 97 (74-99) mg/dL Calcium 9.3 (8.4-10.2) mg/dL Total Bilirubin 0.7 (0.2-1.3) mg/dL AST 91 H (17-59) U/L ALT 87 H (4-49) U/L Alkaline Phosphatase 111 (38-126) U/L Total Protein 8.2 (6.3-8.2) g/dL Albumin 4.2 (3.5-5.0) g/dL Amylase 66 (30-110) U/L Lipase 360 H (23-300) U/L Urine Color Yellow Urine Appearance Clear (Clear) Urine pH 6.0 (5.0-8.0) Ur Specific [place] 1.020 (1.001-1.035) Urine Protein Negative (Negative) Urine Glucose (UA) Negative (Negative) Urine Ketones Negative (Negative) Urine Blood Trace H (Negative) Urine Nitrite Negative (Negative) Urine Bilirubin Negative (Negative) Urine Urobilinogen 0.2 (<2.0) mg/dL Ur Leukocyte Esterase Negative (Negative) Disposition <Li Pickering - Last Filed: 10/01/23 12:01> Is patient prescribed a controlled substance at d/c from ED?: Yes If prescribed controlled substance>3 days was MAPS reviewed?: Prescribed <3 Days Time of Disposition: 13:38 <Edwardo Allen - Last Filed: 10/01/23 13:38> Clinical Impression: Abdominal pain Disposition: HOME SELF-CARE Condition: Fair Instructions (If sedation given, give patient instructions): Abdominal Pain (ED) Prescriptions: HYDROcodone/APAP 5-325MG [[place] 5-325] 1 tab PO Q6HR PRN 3 Days #12 tab PRN Reason: Severe Pain Referrals: None,Stated [Primary Care Provider] - 1-2 days
[2023-10-01] MEDS ORDERED: SODIUM CHLORIDE 0.9% 1,000 ML IV STA (12:29)
[2023-10-01] MEDS ORDERED: MORPHINE SULFATE 4 MG/ML SYRINGE IV STA (12:29)
[2023-10-01] MEDS ORDERED: ONDANSETRON 4 MG/2 ML VIAL IVP STA (12:29)
[2023-10-01 12:40] LABS: Basophils % (A) 1 %; Eosinophils # (A) 0.1 k/uL (0-0.7); Eosinophils % (A) 3 %; HCT 46.8 % (39.0-53.0); HGB 16.1 gm/dL (13.0-17.5); Lymphocytes % (A) 40 %; MCH 35.8 pg (25.0-35.0); MCHC 34.4 g/dL (31.0-37.0); MCV 104.1 fL (80.0-100.0); Macrocytosis Slight; Mean Platelet Volume 8.8; Monocytes # (A) 0.4 k/uL (0-1.0); Monocytes % (A) 8 %; Neutrophils # (A) 2.3 k/uL (1.3-7.7); Neutrophils % (A) 46 %; Platelet Count 101 k/uL (150-450); RDW 13.4 % (11.5-15.5); WBC 5.1 k/uL (3.8-10.6)
[2023-10-01 12:43] LABS: ALT 87 U/L (4-49); AST 91 U/L (17-59); African American GFR (CKD) >90 (>60 ml/min/1.73 sqM); Albumin 4.2 g/dL (3.5-5.0); Alkaline Phosphatase 111 U/L (38-126); Amylase 66 U/L (30-110); Anion Gap 13 mmol/L; Blood Urea Nitrogen 19 mg/dL (9-20); Calcium 9.3 mg/dL (8.4-10.2); Carbon Dioxide 21 mmol/L (22-30); Chloride 105 mmol/L (98-107); Glucose 97 mg/dL (74-99); Lipase 360 U/L (23-300); Non-African American GFR(CKD) >90 (>60 ml/min/1.73 sqM); Potassium 4.2 mmol/L (3.5-5.1); Sodium 139 mmol/L (137-145); Total Bilirubin 0.7 mg/dL (0.2-1.3); Total Protein 8.2 g/dL (6.3-8.2)
[2023-10-01 13:25] LABS: Appearance,Urine Clear (Clear); Bilirubin,Urine Negative (Negative); Blood,Urine Trace (Negative); Color,Urine Yellow; Glucose,Urine (UA) Negative (Negative); Ketones,Urine Negative (Negative); Leukocyte Esterase,Urine Negative (Negative); Nitrite,Urine Negative (Negative); Protein,Urine Negative (Negative); Urobilinogen,Urine 0.2 mg/dL (<2.0)
[2023-10-01 13:34] LABS: Mucus,Urine Rare /hpf; RBC,Urine <1 /hpf (0-5); WBC,Urine 1 /hpf (0-5)
[2023-10-01 14:09] VITALS: BP 153/95; PULSE 62; TEMP 98
== END 2023-10-01 14:04 | disposition home or self-care (01) ==
LOC: EC 11:31
DX: R10.13 Epigastric pain (principal); R00.1 Bradycardia, unspecified; F17.200 Nicotine dependence, unspecified, uncomplicated; F12.90 Cannabis use, unspecified, uncomplicated; Z88.7 Allergy status to serum and vaccine
CPT/HCPCS: 36415; 93005; 80053; 82150; 83690; 85025; 81001; 99284; 96374; 96375; 96361; J2270; J2405

== ENCOUNTER 2024-02-08 14:07 | Emergency (ER) | payer OTHER ==
[2024-02-08 15:01] VITALS: RESP 18; TEMP 97.9
[2024-02-08] MEDS: KETOROLAC 15 MG/ML 1 ML VIAL IVP STA ×2 (15:21→18:26)
[2024-02-08] MEDS: SODIUM CHLORIDE 0.9% 1,000 ML IV STA (15:22)
[2024-02-08] MEDS: HYDROmorphone 1 MG/ML 1 ML SYRINGE IVP STA ×2 (15:22→18:26)
[2024-02-08 15:55] LABS: Basophils % (A) 0 %; Eosinophils # (A) 0.1 k/uL (0-0.7); Eosinophils % (A) 1 %; HCT 43.4 % (39.0-53.0); HGB 15.3 gm/dL (13.0-17.5); Lymphocytes # (A) 1.2 k/uL (1.0-4.8); Lymphocytes % (A) 28 %; MCH 36.7 pg (25.0-35.0); MCHC 35.2 g/dL (31.0-37.0); MCV 104.1 fL (80.0-100.0); Macrocytosis Slight; Mean Platelet Volume 9.5; Monocytes # (A) 0.3 k/uL (0-1.0); Monocytes % (A) 6 %; Neutrophils # (A) 2.7 k/uL (1.3-7.7); Neutrophils % (A) 63 %; RBC 4.16 m/uL (4.30-5.90); WBC 4.4 k/uL (3.8-10.6)
[2024-02-08 16:00] LABS: ALT 100 U/L (4-49); AST 121 U/L (17-59); African American GFR (CKD) >90 (>60 ml/min/1.73 sqM); Albumin 3.9 g/dL (3.5-5.0); Alcohol <10 mg/dL; Alkaline Phosphatase 131 U/L (38-126); Amylase 59 U/L (30-110); Anion Gap 7 mmol/L; Blood Urea Nitrogen 17 mg/dL (9-20); Carbon Dioxide 24 mmol/L (22-30); Chloride 104 mmol/L (98-107); Glucose 101 mg/dL (74-99); Lipase 423 U/L (23-300); Non-African American GFR(CKD) >90 (>60 ml/min/1.73 sqM); Potassium 4.1 mmol/L (3.5-5.1); Sodium 135 mmol/L (137-145); Total Bilirubin 0.8 mg/dL (0.2-1.3); Total Protein 7.6 g/dL (6.3-8.2)
[2024-02-08 16:14] LABS: Platelet Count 75 k/uL (150-450)
--- NOTE | 2024-02-08 16:48 | ED ---
Abdominal Pain HPI - General Chief Complaint: Abdominal Pain Stated Complaint: R FLANK PAIN Time Seen by Provider: 02/08/24 14:53 Source: patient, RN notes reviewed Mode of arrival: ambulatory Limitations: no limitations - History of Present Illness Initial Comments: This is a 49-year-old male who presents to the emergency department for abdominal pain. States that it started 3 days ago. This is in the right upper quadrant. Denies any radiation of pain. Denies any nausea/vomiting or changes in bowel/bladder habits. States that this feels like the last time that he had pancreatitis a couple of years ago. States states that this was due to his drinking and reports regular excessive alcohol consumption. MD Complaint: abdominal pain - Related Data Previous Rx's Medication Instructions Recorded HYDROcodone/APAP 5-325MG [[place] 1 tab PO Q6HR PRN 3 Days #12 tab 10/01/23 5-325] Allergies Allergy/AdvReac Type Severity Reaction Status Date / Time Pertussis Vaccines Allergy Unknown Verified 02/08/24 14:49 Review of Systems ROS Statement: Those systems with pertinent positive or pertinent negative responses have been documented in the HPI. ROS Other: All systems not noted in ROS Statement are negative. Past Medical History Past Medical History: GERD/Reflux Additional Past Medical History / Comment(s): ETOH, current smoker pancreatitis History of Any Multi-Drug Resistant Organisms: None Reported Past Surgical History: Hernia Repair Additional Past Surgical History / Comment(s): 2 hernia repairs one on the right lower abdomen, one on the left lower abdomen. Past Anesthesia/Blood Transfusion Reactions: No Reported Reaction Past Psychological History: No Psychological Hx Reported Smoking Status: Current every day smoker Past Alcohol Use History: Daily, Heavy Past Drug Use History: Marijuana - Past Family History Father Family Medical History: Myocardial Infarction ([place]) Additional Family Medical History / Comment(s): Father and grandfather both from heart attacks General Exam Limitations: no limitations General appearance: alert, in no apparent distress Head exam: Present: atraumatic, normocephalic, normal inspection Eye exam: Present: normal appearance, PERRL, EOMI. Absent: scleral icterus, conjunctival injection, periorbital swelling Respiratory exam: Present: normal lung sounds bilaterally. Absent: respiratory distress, wheezes, rales, rhonchi, stridor Cardiovascular Exam: Present: regular rate, normal rhythm, normal heart sounds. Absent: systolic murmur, diastolic murmur, rubs, gallop, clicks Neurological exam: Present: alert, oriented X3, CN II-XII intact Psychiatric exam: Present: normal affect, normal mood Skin exam: Present: warm, dry, intact, normal color. Absent: rash Course Vital Signs 02/08/24 02/08/24 14:45 18:40 Temperature 97.9 F Pulse Rate 68 65 Respiratory 18 18 Rate Blood Pressure 152/96 157/109 O2 Sat by Pulse 98 99 Oximetry Medical Decision Making - Medical Decision Making This is a 49 year old male who presents to the emergency department for abdominal pain. Was pt. sent in by a medical professional or institution? @ -No Did you speak to anyone other than the patient for history? @ -No Did you review nursing and triage notes? @ -Yes, and I agree, it is accurate with regards to the patient's symptoms. Were old charts reviewed? @ -No Differential Diagnosis? @ -Differential Abdominal Pain Men: Appendicitis, cholecystitis, diverticulosis, ischemic bowel, pancreatitis, hepatitis, UTI, gastroenteritis, AAA, incarcerated hernia, bowel obstruction, constipation, inflammatory bowel, hepatitis, peptic ulcer disease, splenic infarction, perforated viscus, testicular torsion, this is not meant to be an all-inclusive list EKG interpreted by me (3pts min.)? @ -EKG interpreted by me demonstrating the following: Sinus rhythm. Ventricular rate 60 bpm, NM interval 124 ms, QRS duration 82 ms, QTc 419 ms. X-rays interpreted by me (1pt min.)? @ -Not obtained CT interpreted by me (1pt min.)? @ -Not obtained U/S interpreted by me (1pt. min.)? @ -Gallbladder ultrasound obtained. My interpretation identifies no evidence of cholelithiasis. What testing was considered but not performed? (CT, X-rays, U/S, labs)? Why? @ -None What meds were considered but not given? Why? @ -None Did you discuss the management of the patient with other professionals? @ -No Did you reconcile home meds? @ -No Was smoking cessation discussed for >3mins.? @ -I discussed smoking cessation for greater than 3 minutes. The risk of smoking were discussed with the patient including but not limited to risks of cancer, stroke, coronary artery disease and COPD. Also discussed with patient were multiple methods of quitting smoking. Lastly we discussed the financial cost of smoking. Was critical care preformed (if so, how long)? @ -No Were there social determinants of health that impacted care today? How? (Homelessness, low income, unemployed, alcoholism, drug addiction, transportation, low edu. Level, literacy, decrease access to med. care, correction, rehab)? @ -Alcoholism, contributing to recurrent episodes of pancreatitis Was there de-escalation of care discussed even if they declined? (Discuss DNR or withdrawal of care, Hospice)? @ -No What co-morbidities impacted this encounter? (DM, HTN, Smoking, COPD, CAD, Cancer, CVA, Hep., AIDS, mental health diagnosis, sleep apnea, morbid obesity)? @ -Alcoholism, smoking Was patient admitted / discharged? @ -Discharged. Lab work demonstrates elevated liver enzymes which are stable when compared with prior. Lipase is 423. Gallbladder ultrasound obtained revealing no acute process. His current lipase level is not greater than 3 times the limit of normal to suggest an acute pancreatitis. His symptoms were well-controlled in the emergency department and he was discharged home in stable condition. Advised ibuprofen and Tylenol as needed for pain relief and a bland liquid diet for the meantime. Undiagnosed new problem with uncertain prognosis? @ -None Drug Therapy requiring intensive monitoring for toxicity (Heparin, Nitro, Insulin, Cardizem)? @ -None Were any procedures done? @ -None Diagnosis/symptom? @ -Abdominal pain Acute, or Chronic, or Acute on Chronic? @ -Acute Uncomplicated (without systemic symptoms) or Complicated (systemic symptoms)? @ -Uncomplicated Side effects of treatment? @ -None Exacerbation, Progression, or Severe Exacerbation] @ -Not applicable Poses a threat to life or bodily function? @ -No Return precautions reviewed in depth, the patient is instructed to return to the emergency department with any new, worsening, or concerning symptoms. Patient verbalized understanding. This case was discussed in detail with the attending ED physician, Dr. Cheng. Presentation, findings, and treatment plan discussed in detail as well. - Lab Data Result diagrams: 02/08/24 15:18 02/08/24 15:18 Lab Results 02/08/24 02/08/24 02/08/24 Range/Units 15:18 15:18 15:18 WBC 4.4 (3.8-10.6) k/uL RBC 4.16 L (4.30-5.90) m/uL Hgb 15.3 (13.0-17.5) gm/dL Hct 43.4 (39.0-53.0) % MCV 104.1 H (80.0-100.0) fL MCH 36.7 H (25.0-35.0) pg MCHC 35.2 (31.0-37.0) g/dL RDW 14.0 (11.5-15.5) % Plt Count 75 L (150-450) k/uL MPV 9.5 Neutrophils % 63 % Lymphocytes % 28 % Monocytes % 6 % Eosinophils % 1 % Basophils % 0 % Neutrophils # 2.7 (1.3-7.7) k/uL Lymphocytes # 1.2 (1.0-4.8) k/uL Monocytes # 0.3 (0-1.0) k/uL Eosinophils # 0.1 (0-0.7) k/uL Basophils # 0.0 (0-0.2) k/uL Manual Slide Review Performed Macrocytosis Slight Sodium 135 L (137-145) mmol/L Potassium 4.1 (3.5-5.1) mmol/L Chloride 104 (98-107) mmol/L Carbon Dioxide 24 (22-30) mmol/L Anion Gap 7 mmol/L BUN 17 (9-20) mg/dL Creatinine 0.67 (0.66-1.25) mg/dL Est GFR (CKD-EPI)AfAm >90 (>60 ml/min/1.73 sqM) Est GFR (CKD-EPI)NonAf >90 (>60 ml/min/1.73 sqM) Glucose 101 H (74-99) mg/dL Plasma Lactic Acid [place] 1.2 (0.7-2.0) mmol/L Calcium 9.0 (8.4-10.2) mg/dL Total Bilirubin 0.8 (0.2-1.3) mg/dL AST 121 H (17-59) U/L ALT 100 H (4-49) U/L Alkaline Phosphatase 131 H (38-126) U/L Troponin I (0.000-0.034) ng/mL Total Protein 7.6 (6.3-8.2) g/dL Albumin 3.9 (3.5-5.0) g/dL Amylase 59 (30-110) U/L Lipase 423 H (23-300) U/L Serum Alcohol <10 mg/dL 02/08/24 Range/Units 15:18 WBC (3.8-10.6) k/uL RBC (4.30-5.90) m/uL Hgb (13.0-17.5) gm/dL Hct (39.0-53.0) % MCV (80.0-100.0) fL MCH (25.0-35.0) pg MCHC (31.0-37.0) g/dL RDW (11.5-15.5) % Plt Count (150-450) k/uL MPV Neutrophils % % Lymphocytes % % Monocytes % % Eosinophils % % Basophils % % Neutrophils # (1.3-7.7) k/uL Lymphocytes # (1.0-4.8) k/uL Monocytes # (0-1.0) k/uL Eosinophils # (0-0.7) k/uL Basophils # (0-0.2) k/uL Manual Slide Review Macrocytosis Sodium (137-145) mmol/L Potassium (3.5-5.1) mmol/L Chloride (98-107) mmol/L Carbon Dioxide (22-30) mmol/L Anion Gap mmol/L BUN (9-20) mg/dL Creatinine (0.66-1.25) mg/dL Est GFR (CKD-EPI)AfAm (>60 ml/min/1.73 sqM) Est GFR (CKD-EPI)NonAf (>60 ml/min/1.73 sqM) Glucose (74-99) mg/dL Plasma Lactic Acid [place] (0.7-2.0) mmol/L Calcium (8.4-10.2) mg/dL Total Bilirubin (0.2-1.3) mg/dL AST (17-59) U/L ALT (4-49) U/L Alkaline Phosphatase (38-126) U/L Troponin I <0.012 (0.000-0.034) ng/mL Total Protein (6.3-8.2) g/dL Albumin (3.5-5.0) g/dL Amylase (30-110) U/L Lipase (23-300) U/L Serum Alcohol mg/dL - Radiology Data Radiology results: report reviewed, image reviewed Disposition Clinical Impression: Abdominal pain, Nicotine dependence Disposition: HOME SELF-CARE Instructions (If sedation given, give patient instructions): Abdominal Pain (ED) Additional Instructions: Return to the emergency department with any new, worsening, or concerning symptoms. Alternate with ibuprofen and Tylenol as needed for pain relief. Try to follow a bland liquid diet for the meantime. Follow up with your primary care provider in 1-2 days. Is patient prescribed a controlled substance at d/c from ED?: No Referrals: None,Stated [Primary Care Provider] - 1-2 days Time of Disposition: 18:19
--- NOTE | 2024-02-08 18:07 | US ---
EXAMINATION TYPE: US gallbladder DATE OF EXAM: 02/08/2024 COMPARISON: NONE CLINICAL INDICATION: Male, 49 years old with history of RUQ pain; Patient denies any other signs, sym ptoms, or relevant history TECHNIQUE: Multiple sonographic images of the right upper quadrant are obtained. FINDINGS: EXAM MEASUREMENTS: Liver Length: 18.8 cm Gallbladder Wall: 0.2 cm CBD: 0.3 cm Right Kidney: 10.9 x 4.5 x 6.0 cm ASSEMBLY OPERATOR NOTES: Pancreas: wnl Liver: Enlarged Gallbladder: wnl Evidence for sonographic Maya's sign: No CBD: wnl Right Kidney: wnl IMPRESSION: 1. Mildly enlarged liver. 2. No shadowing gallstones, evidence of cholecystitis, or biliary dilatation.
[2024-02-08] MEDS: IBUPROFEN 600 MG STARTER PACK 4 TAB BTL PO STA (18:27)
[2024-02-08] MEDS: ACET/COD 300 MG/30 MG STARTER PACK 6 TAB BTL PO STA (18:27)
[2024-02-08] MEDS: HYDROcodone/APAP 5-325MG 1 EACH TAB PO STA (18:27)
[2024-02-08 18:56] VITALS: BP 157/109; PULSE 65
== END 2024-02-08 18:43 | disposition home or self-care (01) ==
LOC: EC 14:07
DX: R10.11 Right upper quadrant pain (principal); F17.200 Nicotine dependence, unspecified, uncomplicated; F12.90 Cannabis use, unspecified, uncomplicated
CPT/HCPCS: 36415; 93005; 80053; 82150; 83605; 83690; 84484; 85025; 76705; 99284; 99406; 96374; 96375; 96376 ×2; 96361; G0480; J1170; J1885; 80320

== ENCOUNTER 2024-02-09 10:30 | Emergency (ER) | payer OTHER ==
[2024-02-09 11:10] LABS: Basophils % (A) 0 %; Eosinophils # (A) 0.1 k/uL (0-0.7); Eosinophils % (A) 2 %; HCT 46.2 % (39.0-53.0); HGB 15.4 gm/dL (13.0-17.5); Lymphocytes # (A) 1.3 k/uL (1.0-4.8); Lymphocytes % (A) 20 %; MCH 36.3 pg (25.0-35.0); MCHC 33.4 g/dL (31.0-37.0); MCV 108.7 fL (80.0-100.0); Macrocytosis Marked; Monocytes # (A) 0.3 k/uL (0-1.0); Monocytes % (A) 5 %; Neutrophils # (A) 4.5 k/uL (1.3-7.7); Neutrophils % (A) 72 %; RBC 4.25 m/uL (4.30-5.90); RDW 13.4 % (11.5-15.5); WBC 6.3 k/uL (3.8-10.6)
--- NOTE | 2024-02-09 11:10 | ED ---
Abdominal Pain HPI - General Chief Complaint: Abdominal Pain Stated Complaint: abd pain Time Seen by Provider: 02/09/24 10:39 Source: patient, RN notes reviewed, old records reviewed Mode of arrival: ambulatory Limitations: no limitations - History of Present Illness Initial Comments: 49-year-old male presents emergency department complaint abdominal pain. Patient was seen here yesterday states pain is worsened primarily mid right side he does have a history of pancreatitis but states this feels different. He states he feels swollen in his right lower quadrant. Patient did have blood work and ultrasound yesterday which was negative otherwise. Patient reports nausea no fever no change in bowel habits. - Related Data Previous Rx's Medication Instructions Recorded HYDROcodone/APAP 5-325MG [Douglas 1 tab PO Q6HR PRN 3 Days #12 tab 10/01/23 5-325] HYDROcodone/APAP 5-325MG [Douglas 5] 1 each PO Q6HR PRN #12 tab 02/09/24 Ondansetron Odt [Zofran Odt] 4 mg PO Q8HR PRN #10 tab 02/09/24 Allergies Allergy/AdvReac Type Severity Reaction Status Date / Time Pertussis Vaccines Allergy Unknown Verified 02/09/24 10:40 Review of Systems ROS Statement: Those systems with pertinent positive or pertinent negative responses have been documented in the HPI. ROS Other: All systems not noted in ROS Statement are negative. Past Medical History Past Medical History: GERD/Reflux Additional Past Medical History / Comment(s): ETOH, current smoker pancreatitis History of Any Multi-Drug Resistant Organisms: None Reported Past Surgical History: Hernia Repair Additional Past Surgical History / Comment(s): 2 hernia repairs one on the right lower abdomen, one on the left lower abdomen. Past Anesthesia/Blood Transfusion Reactions: No Reported Reaction Past Psychological History: No Psychological Hx Reported Smoking Status: Current every day smoker Past Alcohol Use History: Daily, Heavy Past Drug Use History: Marijuana - Past Family History Father Family Medical History: Myocardial Infarction ([place]) Additional Family Medical History / Comment(s): Father and grandfather both from heart attacks General Exam Limitations: no limitations General appearance: alert, in no apparent distress Head exam: Present: atraumatic, normocephalic, normal inspection Eye exam: Present: normal appearance, PERRL, EOMI. Absent: scleral icterus, conjunctival injection, periorbital swelling Respiratory exam: Present: normal lung sounds bilaterally. Absent: respiratory distress, wheezes, rales, rhonchi, stridor Cardiovascular Exam: Present: regular rate, normal rhythm, normal heart sounds. Absent: systolic murmur, diastolic murmur, rubs, gallop, clicks GI/Abdominal exam: Present: soft, tenderness, normal bowel sounds. Absent: distended, guarding, rebound, rigid Back exam: Absent: CVA tenderness (R), CVA tenderness (L) Neurological exam: Present: alert Course Vital Signs 02/09/24 02/09/24 10:38 13:28 Temperature 97.8 F 97.8 F Pulse Rate 80 63 Respiratory 20 18 Rate Blood Pressure 172/91 162/99 O2 Sat by Pulse 99 98 Oximetry Medical Decision Making - Medical Decision Making Was pt. sent in by a medical professional or institution (, PA, PLATING FOREMAN, urgent care, hospital, or alf...) When possible be specific @ -No Did you speak to anyone other than the patient for history (EMS, parent, family, police, friend...)? What history was obtained from this source @ -No Did you review nursing and triage notes (agree or disagree)? Why? @ -I reviewed and agree with nursing and triage notes Were old charts reviewed (outside hosp., previous admission, EMS record, old EKG, old radiological studies, urgent care reports/EKG's, alf records)? Report findings @ -CBC comp lipase and ultrasound from yesterday Differential Diagnosis (chest pain, altered mental status, abdominal pain women, abdominal pain men, vaginal bleeding, weakness, fever, dyspnea, syncope, headache, dizziness, GI bleed, back pain, seizure, CVA, palpatations, mental health, musculoskeletal)? @ -Differential Abdominal Pain Men: Appendicitis, cholecystitis, diverticulosis, ischemic bowel, pancreatitis, hepatitis, UTI, gastroenteritis, AAA, incarcerated hernia, bowel obstruction, constipation, inflammatory bowel, hepatitis, peptic ulcer disease, splenic infarction, perforated viscus, testicular torsion, this is not meant to be an all-inclusive list EKG interpreted by me (3pts min.). @None X-rays interpreted by me (1pt min.). @ -None done CT interpreted by me (1pt min.). @ -CT abd and pelvis shows mild pancreatitis U/S interpreted by me (1pt. min.). @ -None done What testing was considered but not performed or refused? (CT, X-rays, U/S, labs)? Why? @ -None What meds were considered but not given or refused? Why? @ -None Did you discuss the management of the patient with other professionals (professionals i.e. , PA, PLATING FOREMAN, lab, RT, psych nurse, director of social work, physician ophthalmologist, teacher, chemistry technical officer, trimming caser)? Give summary @ -No Was smoking cessation discussed for >3mins.? @ -No Was critical care preformed (if so, how long)? @ -No Were there social determinants of health that impacted care today? How? (Homelessness, low income, unemployed, alcoholism, drug addiction, transportation, low edu. Level, literacy, decrease access to med. care, correction, rehab)? @ -No Was there de-escalation of care discussed even if they declined (Discuss DNR or withdrawal of care, Hospice)? DNR status @ -No What co-morbidities impacted this encounter? (DM, HTN, Smoking, COPD, CAD, Cancer, CVA, ARF, Chemo, Hep., AIDS, mental health diagnosis, sleep apnea, morbid obesity)? @ -Alcohol abuse Was patient admitted / discharged? Hospital course, mention meds given and route, prescriptions, significant lab abnormalities, going to OR and other pertinent info. @ -Discharge patient has very mild pancreatitis lipase is 500 patient was given fluid bolus, analgesics advised to follow clear liquid diet and p.o. diet will follow-up with PCP and advised to refrain from alcohol use Undiagnosed new problem with uncertain prognosis? @ -No Drug Therapy requiring intensive monitoring for toxicity (Heparin, Nitro, Ins ulin, Cardizem)? @ -No Were any procedures done? @ -No Diagnosis/symptom? @ -Mild pancreatitis Acute, or Chronic, or Acute on Chronic? @ -Acute Uncomplicated (without systemic symptoms) or Complicated (systemic symptoms)? @ -Uncomplicated Side effects of treatment? @ -No Exacerbation, Progression, or Severe Exacerbation? @ -No Poses a threat to life or bodily function? How? (Chest pain, USA, DC, pneumonia, PE, COPD, DKA, ARF, appy, cholecystitis, CVA, Diverticulitis, Homicidal, Suicidal, threat to staff... and all critical care pts) @ -No - Lab Data Result diagrams: 02/09/24 11:01 02/09/24 11:01 Lab Results 02/09/24 02/09/24 02/09/24 Range/Units 11:01 11:01 11:01 WBC 6.3 (3.8-10.6) k/uL RBC 4.25 L (4.30-5.90) m/uL Hgb 15.4 (13.0-17.5) gm/dL Hct 46.2 (39.0-53.0) % MCV 108.7 H (80.0-100.0) fL MCH 36.3 H (25.0-35.0) pg MCHC 33.4 (31.0-37.0) g/dL RDW 13.4 (11.5-15.5) % Plt Count 76 L (150-450) k/uL MPV 10.0 Neutrophils % 72 % Lymphocytes % 20 % Monocytes % 5 % Eosinophils % 2 % Basophils % 0 % Neutrophils # 4.5 (1.3-7.7) k/uL Lymphocytes # 1.3 (1.0-4.8) k/uL Monocytes # 0.3 (0-1.0) k/uL Eosinophils # 0.1 (0-0.7) k/uL Basophils # 0.0 (0-0.2) k/uL Manual Slide Review Performed Macrocytosis Marked A Sodium 136 L (137-145) mmol/L Potassium 4.4 (3.5-5.1) mmol/L Chloride 107 (98-107) mmol/L Carbon Dioxide 22 (22-30) mmol/L Anion Gap 7 mmol/L BUN 12 (9-20) mg/dL Creatinine 0.65 L (0.66-1.25) mg/dL Est GFR (CKD-EPI)AfAm >90 (>60 ml/min/1.73 sqM) Est GFR (CKD-EPI)NonAf >90 (>60 ml/min/1.73 sqM) Glucose 128 H (74-99) mg/dL Plasma Lactic Acid North 0.8 (0.7-2.0) mmol/L Calcium 8.9 (8.4-10.2) mg/dL Total Bilirubin 1.5 H (0.2-1.3) mg/dL AST 117 H (17-59) U/L ALT 99 H (4-49) U/L Alkaline Phosphatase 122 (38-126) U/L Total Protein 8.2 (6.3-8.2) g/dL Albumin 4.1 (3.5-5.0) g/dL Lipase 580 H (23-300) U/L Disposition Clinical Impression: Acute pancreatitis, Abdominal pain Disposition: HOME SELF-CARE Condition: Fair Instructions (If sedation given, give patient instructions): Pancreatitis (ED) Additional Instructions: Please return to the Emergency Department if symptoms worsen or any other concerns. Prescriptions: HYDROcodone/APAP 5-325MG [Douglas 5] 1 each PO Q6HR PRN #12 tab PRN Reason: Pain Ondansetron Odt [Zofran Odt] 4 mg PO Q8HR PRN #10 tab PRN Reason: Nausea Is patient prescribed a controlled substance at d/c from ED?: No Referrals: None,Stated [Primary Care Provider] - 1-2 days Time of Disposition: 13:10
[2024-02-09] MEDS: KETOROLAC 15 MG/ML 1 ML VIAL IVP STA ×2 (11:13→13:25)
[2024-02-09] MEDS: ONDANSETRON 4 MG/2 ML VIAL IVP STA (11:14)
[2024-02-09] MEDS: HYDROmorphone 0.5 MG/0.5 ML SYRINGE IVP STA ×2 (11:14→13:23)
[2024-02-09] MEDS: SODIUM CHLORIDE 0.9% 2,000 ML IV STA (11:15)
[2024-02-09 11:22] VITALS: TEMP 97.8
[2024-02-09 11:23] LABS: ALT 99 U/L (4-49); African American GFR (CKD) >90 (>60 ml/min/1.73 sqM); Anion Gap 7 mmol/L; Blood Urea Nitrogen 12 mg/dL (9-20); Calcium 8.9 mg/dL (8.4-10.2); Carbon Dioxide 22 mmol/L (22-30); Chloride 107 mmol/L (98-107); Glucose 128 mg/dL (74-99); Lipase 580 U/L (23-300); Non-African American GFR(CKD) >90 (>60 ml/min/1.73 sqM); Sodium 136 mmol/L (137-145)
[2024-02-09 11:25] LABS: Albumin 4.1 g/dL (3.5-5.0); Potassium 4.4 mmol/L (3.5-5.1); Total Protein 8.2 g/dL (6.3-8.2)
[2024-02-09 11:26] LABS: AST 117 U/L (17-59); Alkaline Phosphatase 122 U/L (38-126); Total Bilirubin 1.5 mg/dL (0.2-1.3)
--- NOTE | 2024-02-09 12:32 | CT ---
EXAMINATION TYPE: CT abdomen pelvis w con CT DLP: 884.7 mGycm, Automated exposure control for dose reduction was used. DATE OF EXAM: 02/09/2024 11:58 AM COMPARISON: CT abdomen pelvis most recent from CLINICAL INDICATION:Male, 49 years old with history of abdominal pain; generalized pain since midnigh t TECHNIQUE: Axial CT abdomen pelvis w con;Sagittal and coronal reformats were created on a separate w orkstation. Contrast used:100 ml mL of Isovue 300 with IV Contrast, (none if empty) Oral contrast used: without Oral Contrast (none if empty) FINDINGS: LOWER CHEST: Unremarkable ABDOMEN LIVER: Unremarkable GALLBLADDER AND BILE DUCTS: Unremarkable. PANCREAS: Question mild fat stranding/edema mesenteric fat surrounding the pancreatic head. SPLEEN: Unremarkable. ADRENAL GLANDS: Unremarkable. KIDNEYS AND URETERS: No evidence of hydronephrosis or renal calculus. The ureters are unremarkable. PELVIS BLADDER: Unremarkable REPRODUCTIVE: Unremarkable. ABDOMEN & PELVIS STOMACH AND BOWEL: No evidence of bowel obstruction. PERITONEUM/RETROPERITONEUM: No evidence of pneumoperitoneum or free fluid. VASCULATURE: No evidence of aortic aneurysm. MUSCULOSKELETAL: No acute osseous abnormalities LYMPH NODES: No gross evidence for lymphadenopathy. SOFT TISSUE/ABDOMINAL WALL: Unremarkable IMPRESSION: 1. No definite CT evidence of acute abdominal or pelvic process. 2. Questionable edema pancreatic may indicate a mild pancreatitis. Correlate with lab amylase and lip ase
[2024-02-09 12:36] LABS: Platelet Count 76 k/uL (150-450)
[2024-02-09 13:41] VITALS: BP 162/99; PULSE 63; RESP 18
== END 2024-02-09 13:29 | disposition home or self-care (01) ==
LOC: EC 10:30
DX: K85.90 Acute pancreatitis without necrosis or infection, unspecified (principal); F10.10 Alcohol abuse, uncomplicated; F17.200 Nicotine dependence, unspecified, uncomplicated; Z88.7 Allergy status to serum and vaccine
CPT/HCPCS: 36415; 80053; 83605; 83690; 85025; 74177; 99285; 96374; 96375 ×2; 96376 ×2; 96361 ×2; J2405; J1885; J1170; Q9967

== ENCOUNTER 2024-07-29 15:20 | Emergency (ER) | payer OTHER ==
--- NOTE | 2024-07-29 16:42 | ED ---
Abdominal Pain HPI - General Chief Complaint: Abdominal Pain Stated Complaint: Abdominal Pain Time Seen by Provider: 07/29/24 16:30 Source: patient, RN notes reviewed Mode of arrival: ambulatory Limitations: no limitations - History of Present Illness Initial Comments: 49-year-old male with history of pancreatitis presenting to the ER with right upper quadrant abdominal pain x 3 days. Describes a constant sharp pain in the right upper quadrant that is worsening in severity. Pain does not radiate. Denies exacerbation with food intake. Denies nausea, vomiting, diarrhea, constipation, fevers, chills, chest pain, shortness of breath. Last bowel m ovement was today and normal. States he drinks alcohol approximately 3-4 times weekly, reports he used to be a daily drinker. Denies history of abdominal surgeries. Denies any medications or health conditions. - Related Data Previous Rx's Medication Instructions Recorded HYDROcodone/APAP 5-325MG [Gleason 1 tab PO Q6HR PRN 3 Days #12 tab 10/01/23 5-325] HYDROcodone/APAP 5-325MG [Gleason 5] 1 each PO Q6HR PRN #12 tab 02/09/24 Ondansetron Odt [Zofran Odt] 4 mg PO Q8HR PRN #10 tab 02/09/24 HYDROcodone/APAP 5-325MG [Gleason 5] 1 each PO Q6HR PRN #12 tab 07/29/24 Ondansetron Odt [Zofran Odt] 4 mg PO Q8HR PRN #10 tab 07/29/24 Allergies Allergy/AdvReac Type Severity Reaction Status Date / Time Pertussis Vaccines Allergy Unknown Verified 02/09/24 10:40 Review of Systems ROS Statement: Those systems with pertinent positive or pertinent negative responses have been documented in the HPI. ROS Other: All systems not noted in ROS Statement are negative. Past Medical History Past Medical History: GERD/Reflux Additional Past Medical History / Comment(s): ETOH, current smoker, pancreatitis History of Any Multi-Drug Resistant Organisms: None Reported Past Surgical History: Hernia Repair Additional Past Surgical History / Comment(s): 2 hernia repairs one on the right lower abdomen, one on the left lower abdomen. Past Anesthesia/Blood Transfusion Reactions: No Reported Reaction Past Psychological History: No Psychological Hx Reported Smoking Status: Current every day smoker Past Alcohol Use History: Daily, Heavy Past Drug Use History: Marijuana - Past Family History Father Family Medical History: Myocardial Infarction ([place]) Additional Family Medical History / Comment(s): Father and grandfather both from heart attacks General Exam Limitations: no limitations General appearance: alert, in no apparent distress Head exam: Present: atraumatic, normocephalic, normal inspection Eye exam: Present: normal appearance, PERRL, EOMI. Absent: scleral icterus, conjunctival injection, periorbital swelling Respiratory exam: Present: normal lung sounds bilaterally. Absent: respiratory distress, wheezes, rales, rhonchi, stridor Cardiovascular Exam: Present: regular rate, normal rhythm, normal heart sounds. Absent: systolic murmur, diastolic murmur, rubs, gallop, clicks GI/Abdominal exam: Present: soft, tenderness (Right upper quadrant tenderness to palpation), normal bowel sounds, other (Negative Maya sign). Absent: distended, guarding, rebound, rigid Neurological exam: Present: alert, oriented X3 Psychiatric exam: Present: normal affect, normal mood Skin exam: Present: warm, dry, intact, normal color. Absent: rash Course Vital Signs 07/29/24 15:33 Temperature 98.1 F Pulse Rate 79 Respiratory 20 Rate Blood Pressure 147/96 O2 Sat by Pulse 98 Oximetry Medical Decision Making - Medical Decision Making Was pt. sent in by a medical professional or institution (NOAH Lugo, AEROSPACE STRESS ENGINEER, urgent c are, hospital, or correction...) When possible be specific @ -No Did you speak to anyone other than the patient for history (EMS, parent, family, police, friend...)? What history was obtained from this source @ -No Did you review nursing and triage notes (agree or disagree)? Why? @ -I reviewed and agree with nursing and triage notes Were old charts reviewed (outside hosp., previous admission, EMS record, old EKG, old radiological studies, urgent care reports/EKG's, correction records)? Report findings @ -Previous ER visits including 02-09-2024 CT scan been questionable pancreatitis and 02-08-2024 ultrasound showed mild enlarged liver, no shadowing gallstones, evidence of cholecystitis, biliary dilatation Differential Diagnosis (chest pain, altered mental status, abdominal pain women, abdominal pain men, vaginal bleeding, weakness, fever, dyspnea, syncope, headache, dizziness, GI bleed, back pain, seizure, CVA, palpatations, mental health, musculoskeletal)? @ -Differential Abdominal Pain Men: Appendicitis, cholecystitis, diverticulosis, ischemic bowel, pancreatitis, hepatitis, UTI, gastroenteritis, AAA, incarcerated hernia, bowel obstruction, constipation, inflammatory bowel, hepatitis, peptic ulcer disease, splenic infarction, perforated viscus, testicular torsion, this is not meant to be an all-inclusive list EKG interpreted by me (3pts min.). @ -As above X-rays interpreted by me (1pt min.). @ -None done CT interpreted by me (1pt min.). @ -CT abdomen pelvis reveals mild hepatomegaly, no acute inflammatory process U/S interpreted by me (1pt. min.). @ -None done What testing was considered but not performed or refused? (CT, X-rays, U/S, labs)? Why? @ -None What meds were considered but not given or refused? Why? @ -None Did you discuss the management of the patient with other professionals (professionals i.e. , PA, AEROSPACE STRESS ENGINEER, lab, RT, psych nurse, nephrology social worker, finishing supervisor, teacher, special technical operations officer, nurse case manager)? Give summary @ -No Was smoking cessation discussed for >3mins.? @ -No Was critical care preformed (if so, how long)? @ -No Were there social determinants of health that impacted care today? How? (Homelessness, low income, unemployed, alcoholism, drug addiction, transportation, low edu. Level, literacy, decrease access to med. care, detention, rehab)? @ -No Was there de-escalation of care discussed even if they declined (Discuss DNR or withdrawal of care, Hospice)? DNR status @ -No What co-morbidities impacted this encounter? (DM, HTN, Smoking, COPD, CAD, Cancer, CVA, ARF, Chemo, Hep., AIDS, mental health diagnosis, sleep apnea, morbid obesity)? @ -None Was patient admitted / discharged? Hospital course, mention meds given and route, prescriptions, significant lab abnormalities, going to OR and other pertinent info. @ -Discharge. This is a 49-year-old male presenting with epigastric pain x 2 days. Denies fever, nausea, vomiting. He does use alcohol 3-4 times weekly. Vital signs are within acceptable limits. He has right upper quadrant abdominal tenderness to palpation. Negative Maya sign. Patient was given 2 L IV fluids and analgesics. Lab work including CBC, CMP, lipase, lactic acid remarkable for lipase 1834, elevated liver enzymes AST 160, ALT 127. CT revealed mild hepatomegaly, however no acute inflammatory process to explain symptoms. Upon reevaluation, patient states symptoms have improved. Discussed diagnosis of acute pancreatitis likely secondary to alcohol use. Offered admission, however upon shared decision making, patient opts to be discharged with strict return precautions. I believe this is reasonable at this time as patient is afebrile, tolerating orals well, pain is controlled. Supportive care discussed including aggressive fluid hydration, n.p.o. for 24 hours, no alcohol use. Patient shows understanding and agrees to plan. Strict return precautions discussed. Case was discussed with my ED attending Dr. Stewart. Patient discharged stable condition. Undiagnosed new problem with uncertain prognosis? @ -No Drug Therapy requiring intensive monitoring for toxicity (Heparin, Nitro, Insulin, Cardizem)? @ -No Were any procedures done? @ -No Diagnosis/symptom? @ -Acute pancreatitis Acute, or Chronic, or Acute on Chronic? @ -Acute Uncomplicated (without systemic symptoms) or Complicated (systemic symptoms)? @ -Uncomplicated Side effects of treatment? @ -No Exacerbation, Progression, or Severe Exacerbation? @ -No Poses a threat to life or bodily function? How? (Chest pain, USA, MA, pneumonia, PE, COPD, DKA, ARF, appy, cholecystitis, CVA, Diverticulitis, Homicidal, Suicidal, threat to staff... and all critical care pts) @ -Unlikely - Lab Data Result diagrams: 07/29/24 16:59 07/29/24 16:59 Lab Results 07/29/24 07/29/24 07/29/24 Range/Units 16:59 16:59 16:59 WBC 6.1 (3.8-10.6) k/uL RBC 4.09 L (4.30-5.90) m/uL Hgb 15.2 (13.0-17.5) gm/dL Hct 43.9 (39.0-53.0) % MCV 107.3 H (80.0-100.0) fL MCH 37.2 H (25.0-35.0) pg MCHC 34.6 (31.0-37.0) g/dL RDW 13.9 (11.5-15.5) % Plt Count 84 L (150-450) k/uL MPV 9.5 Neutrophils % 54 % Lymphocytes % 36 % Monocytes % 6 % Eosinophils % 2 % Basophils % 1 % Neutrophils # 3.3 (1.3-7.7) k/uL Lymphocytes # 2.2 (1.0-4.8) k/uL Monocytes # 0.4 (0-1.0) k/uL Eosinophils # 0.1 (0-0.7) k/uL Basophils # 0.0 (0-0.2) k/uL Manual Slide Review Performed Macrocytosis Moderate Sodium 137 (137-145) mmol/L Potassium 4.1 (3.5-5.1) mmol/L Chloride 105 (98-107) mmol/L Carbon Dioxide 24 (22-30) mmol/L Anion Gap 8 mmol/L BUN 17 (9-20) mg/dL Creatinine 0.71 (0.66-1.25) mg/dL Est GFR (CKD-EPI)AfAm >90 (>60 ml/min/1.73 sqM) Est GFR (CKD-EPI)NonAf >90 (>60 ml/min/1.73 sqM) Glucose 100 H (74-99) mg/dL Plasma Lactic Acid North 1.3 (0.7-2.0) mmol/L Calcium 9.3 (8.4-10.2) mg/dL Total Bilirubin 0.8 (0.2-1.3) mg/dL AST 160 H (17-59) U/L ALT 127 H (4-49) U/L Alkaline Phosphatase 117 (38-126) U/L Total Protein 8.1 (6.3-8.2) g/dL Albumin 4.0 (3.5-5.0) g/dL Amylase 85 (30-110) U/L Lipase 1834 H (23-300) U/L - EKG Data -: EKG Interpreted by Me EKG Comments: EKG reveals normal sinus rhythm no ST changes. Ventricular rate 60 bpm, CT interval 133, QRS duration 88, QT/QTc 418/420 Disposition Clinical Impression: Acute pancreatitis Disposition: HOME SELF-CARE Condition: Stable Instructions (If sedation given, give patient instructions): Pancreatitis (ED) Additional Instructions: Drink plenty of fluids. Do not drink any alcohol. Do not eat for 24 hours. Then slowly reintroduce low fat foods into the diet. Follow-up with PCP for reevaluation in 3 to 5 days. Please return to the Emergency Department if symptoms worsen or any other concerns. Prescriptions: HYDROcodone/APAP 5-325MG [Gleason 5] 1 each PO Q6HR PRN #12 tab PRN Reason: Pain Ondansetron Odt [Zofran Odt] 4 mg PO Q8HR PRN #10 tab PRN Reason: Nausea Is patient prescribed a controlled substance at d/c from ED?: Yes When asked, does pt state using other controlled substances?: No If prescribed controlled substance>3 days was MAPS reviewed?: Prescribed <3 Days If opioid is for acute pain is fill amount 7 days or less?: Yes Referrals: None,Stated [Primary Care Provider] - 1-2 days Time of Disposition: 19:13
[2024-07-29] MEDS: MORPHINE SULFATE 4 MG/ML SYRINGE IVP STA (16:53)
[2024-07-29] MEDS: SODIUM CHLORIDE 0.9% 1,000 ML IV STA ×2 (16:53→18:53)
[2024-07-29 17:25] LABS: Basophils % (A) 1 %; Eosinophils # (A) 0.1 k/uL (0-0.7); Eosinophils % (A) 2 %; HCT 43.9 % (39.0-53.0); HGB 15.2 gm/dL (13.0-17.5); Lymphocytes # (A) 2.2 k/uL (1.0-4.8); Lymphocytes % (A) 36 %; MCH 37.2 pg (25.0-35.0); MCHC 34.6 g/dL (31.0-37.0); MCV 107.3 fL (80.0-100.0); Macrocytosis Moderate; Mean Platelet Volume 9.5; Monocytes # (A) 0.4 k/uL (0-1.0); Monocytes % (A) 6 %; Neutrophils # (A) 3.3 k/uL (1.3-7.7); Neutrophils % (A) 54 %; RBC 4.09 m/uL (4.30-5.90); RDW 13.9 % (11.5-15.5); WBC 6.1 k/uL (3.8-10.6)
[2024-07-29 17:30] LABS: ALT 127 U/L (4-49); AST 160 U/L (17-59); African American GFR (CKD) >90 (>60 ml/min/1.73 sqM); Alkaline Phosphatase 117 U/L (38-126); Amylase 85 U/L (30-110); Anion Gap 8 mmol/L; Blood Urea Nitrogen 17 mg/dL (9-20); Calcium 9.3 mg/dL (8.4-10.2); Carbon Dioxide 24 mmol/L (22-30); Chloride 105 mmol/L (98-107); Glucose 100 mg/dL (74-99); Lipase 1834 U/L (23-300); Non-African American GFR(CKD) >90 (>60 ml/min/1.73 sqM); Potassium 4.1 mmol/L (3.5-5.1); Sodium 137 mmol/L (137-145); Total Bilirubin 0.8 mg/dL (0.2-1.3); Total Protein 8.1 g/dL (6.3-8.2)
[2024-07-29 17:36] LABS: Platelet Count 84 k/uL (150-450)
--- NOTE | 2024-07-29 18:09 | CT ---
EXAMINATION TYPE: CT abdomen pelvis wo con DATE OF EXAM: 07/29/2024 COMPARISON: None HISTORY: 49-year-old male epigastric and right sided abdominal pain CT DLP: 542.4 mGycm. Automated exposure control for dose reduction was used. TECHNIQUE: Contiguous axial scanning of the abdomen and pelvis without IV contrast. Coronal and sagit ben reconstructions performed. FINDINGS: Heart normal size without pericardial effusion. Lung bases clear without pleural effusion. Liver mildly enlarged at 18.4 cm. Noncontrast appearance of the gallbladder, adrenal glands, kidneys, spleen, and pancreas show no kalyan s abnormality. No dilated small bowel, free fluid, or free air. No mesenteric or retroperitoneal lymphadenopathy see n. Normal appendix. Mild to moderate scattered stool. Occasional left-sided clonic diverticulosis. No pe ricolic inflammatory change. Bladder is urine distended. A few pelvic phlebolith. No abnormal fluid collection in the pelvis or pe lvic lymphadenopathy. There are bilateral L3 pars interarticularis defects with grade 2 anterolisthesis at this level and s evere degenerative disc disease and endplate spondylosis. Moderate degenerative disc disease also at L5-S1. IMPRESSION: 1. Mild hepatomegaly at 18.4 cm. 2. Noncontrast exam. No convincing acute inflammatory process identified in the abdomen or pelvis to explain the patient's symptoms. Normal appendix. 3. Bilateral L3 pars defects with a grade 2 anterolisthesis at L3-L4 and severe degenerative disc di sease here. [facility], , 07/29/2024 6:06 PM
[2024-07-29] MEDS: MORPHINE SULFATE 2 MG/ML SYRINGE IVP ONE (18:52)
[2024-07-29 19:53] VITALS: BP 152/101; PULSE 58; RESP 16; TEMP 97.8
== END 2024-07-29 19:54 | disposition home or self-care (01) ==
LOC: EC 15:20
CPT/HCPCS: 36415; 74176; 80053; 82150; 83605; 83690; 85025; 93005; 96361; 96374; 96376; 99284

== ENCOUNTER 2024-09-30 12:29 | Emergency (ER) | payer OTHER ==
[2024-09-30 12:32] VITALS: RESP 18
--- NOTE | 2024-09-30 13:23 | XR ---
EXAMINATION TYPE: XR ankle complete LT DATE OF EXAM: 09/30/2024 1:13 PM COMPARISON: None. CLINICAL INDICATION: Male, 49 years old with history of pain, TECHNIQUE: 3 view(s) obtained. FINDINGS: Ankle mortise is intact. No acute fracture or dislocation evident. Mild soft tissue swelling medial t o the lateral malleolus. Follow up exams can be performed 7-10 days from acute trauma for continued pain IMPRESSION: 1. Mild soft tissue swelling lateral malleolus [facility], , 09/30/2024 1:21 PM
--- NOTE | 2024-09-30 13:29 | ED ---
Lower Extremity Injury HPI - General Chief Complaint: Extremity Injury, Lower Stated Complaint: L ankle injury Time Seen by Provider: 09/30/24 12:45 Source: patient, RN notes reviewed Mode of arrival: ambulatory Limitations: no limitations - History of Present Illness Initial Comments: 49-year-old male presents emergency [place] complaint left ankle pain. He states he stepped in a hole 5 days ago states he rolled his ankle he states he is continue pain swelling has improved. No paresthesias no foot pain no proximal leg pain. - Related Data Previous Rx's Medication Instructions Recorded HYDROcodone/APAP 5-325MG [Melvin 1 tab PO Q6HR PRN 3 Days #12 tab 10/01/23 5-325] HYDROcodone/APAP 5-325MG [Melvin 5] 1 each PO Q6HR PRN #12 tab 02/09/24 Ondansetron Odt [Zofran Odt] 4 mg PO Q8HR PRN #10 tab 02/09/24 HYDROcodone/APAP 5-325MG [Melvin 5] 1 each PO Q6HR PRN #12 tab 07/29/24 Ondansetron Odt [Zofran Odt] 4 mg PO Q8HR PRN #10 tab 07/29/24 Ibuprofen [Motrin] 600 mg PO Q8HR PRN #20 tab 09/30/24 Allergies Allergy/AdvReac Type Severity Reaction Status Date / Time Pertussis Vaccines Allergy Unknown Verified 09/30/24 12:32 Review of Systems ROS Statement: Those systems with pertinent positive or pertinent negative responses have been documented in the HPI. ROS Other: All systems not noted in ROS Statement are negative. Past Medical History Past Medical History: GERD/Reflux Additional Past Medical History / Comment(s): ETOH, current smoker, pancreatitis History of Any Multi-Drug Resistant Organisms: None Reported Past Surgical History: Hernia Repair Additional Past Surgical History / Comment(s): 2 hernia repairs one on the right lower abdomen, one on the left lower abdomen. Past Anesthesia/Blood Transfusion Reactions: No Reported Reaction Past Psychological History: No Psychological Hx Reported Smoking Status: Current every day smoker Past Alcohol Use History: Daily, Heavy Past Drug Use History: Marijuana - Past Family History Father Family Medical History: Myocardial Infarction ([place]) Additional Family Medical History / Comment(s): Father and grandfather both from heart attacks General Exam Limitations: no limitations General appearance: alert, in no apparent distress Head exam: Present: atraumatic, normocephalic, normal inspection Eye exam: Present: normal appearance, PERRL, EOMI. Absent: scleral icterus, conjunctival injection, periorbital swelling Respiratory exam: Present: normal lung sounds bilaterally. Absent: respiratory distress, wheezes, rales, rhonchi, stridor Cardiovascular Exam: Present: regular rate, normal rhythm, normal heart sounds. Absent: systolic murmur, diastolic murmur, rubs, gallop, clicks Extremities exam: Present: other (Thank already moderate swelling, tenderness of the lateral malleoli region no foot tenderness no proximal tib-fib tenderness) Skin exam: Present: warm, dry, intact, normal color. Absent: rash Course Vital Signs 09/30/24 09/30/24 12:30 14:10 Temperature 97.9 F 97.6 F Pulse Rate 67 72 Respiratory 18 18 Rate Blood Pressure 168/108 156/90 O2 Sat by Pulse 100 99 Oximetry Medical Decision Making - Medical Decision Making Was pt. sent in by a medical professional or institution (Dr. PA, [employer], urgent care, hospital, or [facility]...) When possible be specific @ -No Did you speak to anyone other than the patient for history (EMS, parent, family, police, friend...)? What history was obtained from this source @ -No Did you review nursing and triage notes (agree or disagree)? Why? @ -I reviewed and agree with nursing and triage notes Were old charts reviewed (outside hosp., previous admission, EMS record, old EKG, old radiological studies, urgent care reports/EKG's, [facility] records)? Report findings @ -No old charts were reviewed Differential Diagnosis (chest pain, altered mental status, abdominal pain women, abdominal pain men, vaginal bleeding, weakness, fever, dyspnea, syncope, headache, dizziness, GI bleed, back pain, seizure, CVA, palpatations, mental health, musculoskeletal)? @ -Ankle sprain ankle fracture EKG interpreted by me (3pts min.). @ -None X-rays interpreted by me (1pt min.). @ -X-ray left ankle no acute fracture dislocation noted CT interpreted by me (1pt min.). @ -None done U/S interpreted by me (1pt. min.). @ -None done What testing was considered but not performed or refused? (CT, X-rays, U/S, labs)? Why? @ -None What meds were considered but not given or refused? Why? @ -None Did you discuss the management of the patient with other professionals (professionals i.e. , PA, [employer], lab, RT, psych nurse, director social, lawyer criminal, teacher, custom protection officer, porter sample case)? Give summary @ -No Was smoking cessation discussed for >3mins.? @ -No Was critical care preformed (if so, how long)? @ -No Were there social determinants of health that impacted care today? How? (Homelessness, low income, unemployed, alcoholism, drug addiction, transportation, low edu. Level, literacy, decrease access to med. care, [facility], rehab)? @ -No Was there de-escalation of care discussed even if they declined (Discuss DNR or withdrawal of care, Hospice)? DNR status @ -No What co-morbidities impacted this encounter? (DM, HTN, Smoking, COPD, CAD, Cancer, CVA, ARF, Chemo, Hep., AIDS, mental health diagnosis, sleep apnea, morbid obesity)? @ -None Was patient admitted / discharged? Hospital course, mention meds given and route, prescriptions, significant lab abnormalities, going to OR and other pertinent info. @ -Discharge patient has ankle sprain patient was placed in a [facility] follow-up with orthopedics. Undiagnosed new problem with uncertain prognosis? @ -No Drug Therapy requiring intensive monitoring for toxicity (Heparin, Nitro, Insulin, Cardizem)? @ -No Were any procedures done? @ -No Diagnosis/symptom? @ -Ankle sprain Acute, or Chronic, or Acute on Chronic? @ -Acute Uncomplicated (without systemic symptoms) or Complicated (systemic symptoms)? @ -Uncomplicated Side effects of treatment? @ -No Exacerbation, Progression, or Severe Exacerbation? @ -No Poses a threat to life or bodily function? How? (Chest pain, [place], [place], pneumonia, PE, COPD, DKA, ARF, appy, cholecystitis, CVA, Diverticulitis, Homicidal, Suicidal, threat to staff... and all critical care pts) @ -No Disposition Clinical Impression: Left ankle sprain Disposition: HOME SELF-CARE Condition: Stable Instructions (If sedation given, give patient instructions): Ankle Sprain (ED) Additional Instructions: Please return to the Emergency Department if symptoms worsen or any other concerns. Prescriptions: Ibuprofen [Motrin] 600 mg PO Q8HR PRN #20 tab PRN Reason: Pain Is patient prescribed a controlled substance at d/c from ED?: No Referrals: Joe Bernard MD [STAFF PHYSICIAN] - 1-2 days Forms: Area PCPs
[2024-09-30] MEDS: ACET/COD 300 MG/30 MG STARTER PACK 6 TAB BTL PO STA (13:47)
[2024-09-30 14:12] VITALS: BP 156/90; PULSE 72; TEMP 97.6
== END 2024-09-30 14:10 | disposition home or self-care (01) ==
LOC: EC 12:29
DX: S93.402A Sprain of unspecified ligament of left ankle, initial encounter (principal); F17.200 Nicotine dependence, unspecified, uncomplicated; Z88.7 Allergy status to serum and vaccine; X50.1XXA Overexertion from prolonged static or awkward postures, initial encounter
CPT/HCPCS: 73610; 99283; L4350

== ENCOUNTER 2025-02-10 14:09 | Emergency (ER) | payer OTHER ==
--- NOTE | 2025-02-10 14:46 | ED ---
Abdominal Pain HPI - General Chief Complaint: Abdominal Pain Stated Complaint: ABD Pain Time Seen by Provider: 02/10/25 14:25 Source: patient, RN notes reviewed Mode of arrival: ambulatory Limitations: no limitations - History of Present Illness Initial Comments: This is a 50-year-old male with history of GERD and pancreatitis presenting to emergency department for complaints of epigastric and left upper quadrant abdominal pain that has been worsening over the past 2 days. States the pain is described as a stabbing sensation that is nonradiating. He denies associated diaphoresis, nausea, vomiting, diarrhea, constipation, urinary complaints. Patient states he does have a history of alcohol abuse but has not had an alcoholic beverage in over a month. Denies previous surgical abdominal history. - Related Data Previous Rx's Medication Instructions Recorded HYDROcodone/APAP 5-325MG [Hazel 1 tab PO Q6HR PRN 3 Days #12 tab 10/01/23 5-325] HYDROcodone/APAP 5-325MG [Hazel 5] 1 each PO Q6HR PRN #12 tab 02/09/24 Ondansetron Odt [Zofran Odt] 4 mg PO Q8HR PRN #10 tab 02/09/24 HYDROcodone/APAP 5-325MG [Hazel 5] 1 each PO Q6HR PRN #12 tab 07/29/24 Ondansetron Odt [Zofran Odt] 4 mg PO Q8HR PRN #10 tab 07/29/24 Ibuprofen [Motrin] 600 mg PO Q8HR PRN #20 tab 09/30/24 Ketorolac [Toradol] 10 mg PO Q8HR #15 tab 02/10/25 Allergies Allergy/AdvReac Type Severity Reaction Status Date / Time Pertussis Vaccines Allergy Unknown Verified 02/10/25 14:20 Review of Systems ROS Statement: Those systems with pertinent positive or pertinent negative responses have been documented in the HPI. ROS Other: All systems not noted in ROS Statement are negative. Past Medical History Past Medical History: GERD/Reflux Additional Past Medical History / Comment(s): pancreatitis History of Any Multi-Drug Resistant Organisms: None Reported Past Surgical History: Hernia Repair Additional Past Surgical History / Comment(s): 2 hernia repairs one on the right lower abdomen, one on the left lower abdomen. Past Anesthesia/Blood Transfusion Reactions: No Reported Reaction Past Psychological History: No Psychological Hx Reported Smoking Status: Current every day smoker Past Alcohol Use History: Daily, Heavy Past Drug Use History: Marijuana - Past Family History Father Family Medical History: Myocardial Infarction ([place]) Additional Family Medical History / Comment(s): Father and grandfather both from heart attacks General Exam Limitations: no limitations General appearance: alert, in no apparent distress Respiratory exam: Present: normal lung sounds bilaterally. Absent: respiratory distress, wheezes, rales, rhonchi, stridor Cardiovascular Exam: Present: regular rate, normal rhythm, normal heart sounds. Absent: systolic murmur, diastolic murmur, rubs, gallop, clicks GI/Abdominal exam: Present: soft, tenderness (epigastric, LUQ), normal bowel sounds. Absent: distended, guarding, rebound, rigid Extremities exam: Present: normal inspection, full ROM, normal capillary refill. Absent: tenderness, pedal edema, joint swelling, calf tenderness Back exam: Present: normal inspection. Absent: CVA tenderness (R), CVA tenderness (L) Course Vital Signs 02/10/25 02/10/25 02/10/25 14:18 15:36 16:42 Temperature 98.4 F 98.7 F Pulse Rate 90 79 73 Respiratory 18 20 19 Rate Blood Pressure 147/80 128/83 128/83 O2 Sat by Pulse 98 98 97 Oximetry Medical Decision Making - Medical Decision Making Was pt. sent in by a medical professional or institution (, PA, [employer], urgent care, hospital, or shelter...) When possible be specific @ -No Did you speak to anyone other than the patient for history (EMS, parent, family, police, friend...)? What history was obtained from this source @ -No Did you review nursing and triage notes (agree or disagree)? Why? @ -I reviewed and agree with nursing and triage notes Were old charts reviewed (outside hosp., previous admission, EMS record, old EKG, old radiological studies, urgent care reports/EKG's, shelter records)? Report findings @ -No old charts were reviewed Differential Diagnosis (chest pain, altered mental status, abdominal pain women, abdominal pain men, vaginal bleeding, weakness, fever, dyspnea, syncope, headache, dizziness, GI bleed, back pain, seizure, CVA, palpatations, mental health, musculoskeletal)? @ -Differential Abdominal Pain Men: Appendicitis, cholecystitis, diverticulosis, ischemic bowel, pancreatitis, hepatitis, UTI, gastroenteritis, AAA, incarcerated hernia, bowel obstruction, constipation, inflammatory bowel, hepatitis, peptic ulcer disease, splenic infarction, perforated viscus, testicular torsion, this is not meant to be an all-inclusive list EKG interpreted by me (3pts min.). @ -Completed at 1510 sinus rhythm with a ventricular of 78, NH interval 152, QRS 88, QTc 410. X-rays interpreted by me (1pt min.). @ -None done CT interpreted by me (1pt min.). @ -None done U/S interpreted by me (1pt. min.). @ -Ultrasound of the gallbladder reveals no evidence for acute process, hepatomegaly with diffuse steatosis What testing was considered but not performed or refused? (CT, X-rays, U/S, labs)? Why? @ -None What meds were considered but not given or refused? Why? @ -None Did you discuss the management of the patient with other professionals (professionals i.e. , PA, [employer], lab, RT, psych nurse, social work lecturer, tableman, teacher, airline pilot/first officer, showcase trimmer)? Give summary @ -No Was smoking cessation discussed for >3mins.? @ -No Was critical care preformed (if so, how long)? @ -No Were there social determinants of health that impacted care today? How? (Homelessness, low income, unemployed, alcoholism, drug addiction, transportation, low edu. Level, literacy, decrease access to med. care, [facility], rehab)? @ -No Was there de-escalation of care discussed even if they declined (Discuss DNR or withdrawal of care, Hospice)? DNR status @ -No What co-morbidities impacted this encounter? (DM, HTN, Smoking, COPD, CAD, Cancer, CVA, ARF, Chemo, Hep., AIDS, mental health diagnosis, sleep apnea, morbid obesity)? @ -None Was patient admitted / discharged? Hospital course, mention meds given and route, prescriptions, significant lab abnormalities, going to OR and other pertinent info. @ -discharged. 50-year-old male presenting to emergency department complaints of epigastric and left upper quadrant abdominal pain. Pain is reproducible on exam with mild guarding. He is provided with IV fluids and morphine for pain with history of pancreatitis. CBC unremarkable, CMP reveals mild transaminitis with an AST of 207, ALT 144, alkaline phosphatase 150. Serum alcohol level of less than 10. Ultrasound of the gallbladder no acute process, hepatomegaly with diffuse steatosis. On reevaluation patient states feeling well after medication ministration. Recommend follow-up with primary care provider. Case discussed with Dr. Cheng Undiagnosed new problem with uncertain prognosis? @ -No Drug Therapy requiring intensive monitoring for toxicity (Heparin, Nitro, Insulin, Cardizem)? @ -No Were any procedures done? @ -No Diagnosis/symptom? @ -epigastric abdominal pain, transaiminitis Acute, or Chronic, or Acute on Chronic? @ -acute Uncomplicated (without systemic symptoms) or Complicated (systemic symptoms)? @ -uncomplicated Side effects of treatment? @ -No Exacerbation, Progression, or Severe Exacerbation? @ -No Poses a threat to life or bodily function? How? (Chest pain, [place], [place], pneumonia, PE, COPD, DKA, ARF, appy, cholecystitis, CVA, Diverticulitis, Homicidal, [place] icidal, threat to staff... and all critical care pts) @ -No - Lab Data Result diagrams: 02/10/25 15:23 02/10/25 15:23 Lab Results 02/10/25 02/10/25 02/10/25 Range/Units 15:23 15:23 15:23 WBC 4.32 L (4.50-10.00) 10*3/uL RBC 3.57 L (4.40-5.60) 10*6/uL Hgb 13.4 (13.0-17.0) g/dL Hct 36.8 L (39.6-50.0) % MCV 103.1 H (80.0-97.0) fL MCH 37.5 H (27.0-32.0) pg MCHC 36.4 (32.0-37.0) g/dL Plt Count 56 L (140-440) 10*3/uL MPV 10.9 (9.5-12.2) fL Immature Gran % (Auto) 0.2 % Neutrophils % 49.5 % Lymphocytes % 38.9 % Monocytes % 9.3 % Eosinophils % 1.6 % Basophils % 0.5 % Immature Gran # 0.01 (0.00-0.04) 10*3/uL Neutrophils # 2.14 (1.80-7.70) 10*3/uL Lymphocytes # 1.68 (0.90-5.00) 10*3/uL Monocytes # 0.40 (0.20-1.00) 10*3/uL Eosinophils # 0.07 (0.04-0.35) 10*3/uL Basophils # 0.02 (0.00-0.10) 10*3/uL Manual Slide Review Performed Immature Plt Fraction 3.5 (1.1-6.1) % Sodium 138 (137-145) mmol/L Potassium 3.8 (3.5-5.1) mmol/L Chloride 106 (98-107) mmol/L Carbon Dioxide 22 (22-30) mmol/L Anion Gap 10 mmol/L BUN 12 (9-20) mg/dL Creatinine 0.76 (0.66-1.25) mg/dL Est GFR (CKD-EPI)AfAm >90 (>60 ml/min/1.73 sqM) Est GFR (CKD-EPI)NonAf >90 (>60 ml/min/1.73 sqM) Glucose 112 H (74-99) mg/dL Calcium 8.7 (8.4-10.2) mg/dL Magnesium 1.6 (1.6-2.3) mg/dL Total Bilirubin 0.8 (0.2-1.3) mg/dL AST 207 H (17-59) U/L ALT 144 H (4-49) U/L Alkaline Phosphatase 150 H (38-126) U/L Troponin I <0.012 (0.000-0.034) ng/mL Total Protein 7.0 (6.3-8.2) g/dL Albumin 3.5 (3.5-5.0) g/dL Amylase 44 (30-110) U/L Lipase 236 (23-300) U/L Serum Alcohol <10 mg/dL Disposition Clinical Impression: Epigastric abdominal pain, Transaminitis Disposition: HOME SELF-CARE Condition: Stable Instructions (If sedation given, give patient instructions): Abdominal Pain (ED) Additional Instructions: Please return to the Emergency Department if symptoms worsen or any other concerns. Prescriptions: Ketorolac [Toradol] 10 mg PO Q8HR #15 tab Is patient prescribed a controlled substance at d/c from ED?: No Referrals: None,Stated [Primary Care Provider] - 1-2 days [facility] [NON-STAFF] - 1-2 days Time of Disposition: 16:21
[2025-02-10 15:32] LABS: Basophils # (A) 0.02 10*3/uL (0.00-0.10); Basophils % (A) 0.5 %; Eosinophils # (A) 0.07 10*3/uL (0.04-0.35); Eosinophils % (A) 1.6 %; HCT 36.8 % (39.6-50.0); HGB 13.4 g/dL (13.0-17.0); Immature Platelet Fraction 3.5 % (1.1-6.1); Lymphocytes # (A) 1.68 10*3/uL (0.90-5.00); Lymphocytes % (A) 38.9 %; MCH 37.5 pg (27.0-32.0); MCHC 36.4 g/dL (32.0-37.0); MCV 103.1 fL (80.0-97.0); Mean Platelet Volume 10.9 fL (9.5-12.2); Monocytes % (A) 9.3 %; Neutrophils # (A) 2.14 10*3/uL (1.80-7.70); Neutrophils % (A) 49.5 %; RBC 3.57 10*6/uL (4.40-5.60); RDW 13.4 % (11.5-14.5); WBC 4.32 10*3/uL (4.50-10.00)
[2025-02-10 15:37] VITALS: BP 128/83
[2025-02-10] MEDS: SODIUM CHLORIDE 0.9% 1,000 ML IV STA (15:37)
[2025-02-10] MEDS: MORPHINE SULFATE 4 MG/ML SYRINGE IVP STA (15:38)
[2025-02-10 15:53] LABS: ALT 144 U/L (4-49); AST 207 U/L (17-59); African American GFR (CKD) >90 (>60 ml/min/1.73 sqM); Albumin 3.5 g/dL (3.5-5.0); Alcohol <10 mg/dL; Alkaline Phosphatase 150 U/L (38-126); Amylase 44 U/L (30-110); Anion Gap 10 mmol/L; Blood Urea Nitrogen 12 mg/dL (9-20); Calcium 8.7 mg/dL (8.4-10.2); Carbon Dioxide 22 mmol/L (22-30); Chloride 106 mmol/L (98-107); Glucose 112 mg/dL (74-99); Lipase 236 U/L (23-300); Magnesium 1.6 mg/dL (1.6-2.3); Non-African American GFR(CKD) >90 (>60 ml/min/1.73 sqM); Potassium 3.8 mmol/L (3.5-5.1); Sodium 138 mmol/L (137-145); Total Bilirubin 0.8 mg/dL (0.2-1.3)
--- NOTE | 2025-02-10 16:00 | US ---
EXAMINATION TYPE: US gallbladder DATE OF EXAM: 02/10/2025 COMPARISON: 02/08/2024 CLINICAL INDICATION: Male, 50 years old with history of RUQ/epigastric ab pain, hx of pancreatitis; E pigastric and LUQ pain x 3 days; Hx alcohol use; Patient denies any signs, symptoms, or relevant hist ory TECHNIQUE: Grayscale and color Doppler imaging of the right upper quadrant was performed. FINDINGS: EXAM MEASUREMENTS: Liver Length: 19.4 cm Gallbladder Wall: 0.3 cm CBD: 0.3 cm Right Kidney: 11.9 x 6.8 x 5.9 cm FELT FINISHER NOTES: Pancreas: Pancreatic duct seen Liver: Increased attenuation and enlarged; ?Dilated portal vein Gallbladder: wnl Evidence for sonographic Maya's sign: No CBD: wnl Right Kidney: wnl Pancreas is unremarkable. Liver demonstrates diffusely increased attenuation and is enlarged. No foca l lesion or surface nodularity identified. Prominent portal vein. Gallbladder demonstrates no wall th ickening, calculi, or surrounding fluid. Negative sonographic Maya's sign. Common bile duct is with in normal limits. Right kidney demonstrates no hydronephrosis, shadowing calculus or solid mass. IMPRESSION: 1. No ultrasound evidence for acute process. 2. Hepatomegaly with diffuse steatosis. [facility] Gregorio, , 02/10/2025 3:58 PM
[2025-02-10 16:13] LABS: Platelet Count 56 10*3/uL (140-440)
[2025-02-10] MEDS: HYDROmorphone 0.5 MG/0.5 ML SYRINGE IVP STA (16:39)
[2025-02-10 16:44] VITALS: PULSE 73; RESP 19; TEMP 98.7
== END 2025-02-10 17:13 | disposition home or self-care (01) ==
LOC: EC 14:09
DX: R10.13 Epigastric pain (principal); R74.01 Elevation of levels of liver transaminase levels; Z87.19 Personal history of other diseases of the digestive system; F17.200 Nicotine dependence, unspecified, uncomplicated; Z88.7 Allergy status to serum and vaccine
CPT/HCPCS: 36415; 93005; 80053; 82150; 83690; 83735; 84484; 85025; 76705; 99284; 96374; 96375; 96361; G0480; J2270; J1171; 80320

== ENCOUNTER 2025-02-13 18:51 | Emergency (ER) | payer OTHER ==
--- NOTE | 2025-02-13 20:03 | ED ---
Abdominal Pain HPI - General Chief Complaint: Abdominal Pain Stated Complaint: abdominal pain Time Seen by Provider: 02/13/25 19:33 Source: patient, RN notes reviewed, old records reviewed Mode of arrival: ambulatory Limitations: no limitations - History of Present Illness Initial Comments: This is a 50 male to ER for evaluation of severe epigastric abdominal pain pain to his back. Patient has history of alcoholism history of pancreatitis feels mildly worse. No travels or sick contacts no fevers positive nausea vomiting MD Complaint: abdominal pain -: days(s) Location: epigastric Radiation: epigastric, back Migration to: L flank, R flank Quality: stabbing Consistency: constant Improves With: nothing Worsens With: nothing Associated Symptoms: nausea, vomiting Treatments Prior to Arrival: other (0) - Related Data Previous Rx's Medication Instructions Recorded HYDROcodone/APAP 5-325MG [[place] 1 tab PO Q6HR PRN 3 Days #12 tab 10/01/23 5-325] HYDROcodone/APAP 5-325MG [[place] 5] 1 each PO Q6HR PRN #12 tab 02/09/24 Ondansetron Odt [Zofran Odt] 4 mg PO Q8HR PRN #10 tab 02/09/24 HYDROcodone/APAP 5-325MG [[place] 5] 1 each PO Q6HR PRN #12 tab 07/29/24 Ondansetron Odt [Zofran Odt] 4 mg PO Q8HR PRN #10 tab 07/29/24 Ibuprofen [Motrin] 600 mg PO Q8HR PRN #20 tab 09/30/24 Ketorolac [Toradol] 10 mg PO Q8HR #15 tab 02/10/25 Allergies Allergy/AdvReac Type Severity Reaction Status Date / Time Pertussis Vaccines Allergy Unknown Verified 02/13/25 19:08 Review of Systems ROS Statement: Those systems with pertinent positive or pertinent negative responses have been documented in the HPI. ROS Other: All systems not noted in ROS Statement are negative. Past Medical History Past Medical History: GERD/Reflux Additional Past Medical History / Comment(s): pancreatitis History of Any Multi-Drug Resistant Organisms: None Reported Past Surgical History: Hernia Repair Additional Past Surgical History / Comment(s): 2 hernia repairs one on the right lower abdomen, one on the left lower abdomen. Past Anesthesia/Blood Transfusion Reactions: No Reported Reaction Past Psychological History: No Psychological Hx Reported Smoking Status: Current every day smoker Past Alcohol Use History: Daily, Heavy Past Drug Use History: Marijuana - Past Family History Father Family Medical History: Myocardial Infarction (SD) Additional Family Medical History / Comment(s): Father and grandfather both from heart attacks General Exam Limitations: no limitations General appearance: alert, in no apparent distress Head exam: Present: atraumatic, normocephalic, normal inspection Eye exam: Present: normal appearance, PERRL, EOMI. Absent: scleral icterus, c onjunctival injection, periorbital swelling ENT exam: Present: normal exam, mucous membranes moist Neck exam: Present: normal inspection. Absent: tenderness, meningismus, lymphadenopathy Respiratory exam: Present: normal lung sounds bilaterally. Absent: respiratory distress, wheezes, rales, rhonchi, stridor Cardiovascular Exam: Present: regular rate, normal rhythm, normal heart sounds. Absent: systolic murmur, diastolic murmur, rubs, gallop, clicks GI/Abdominal exam: Present: soft, normal bowel sounds. Absent: distended, tenderness, guarding, rebound, rigid Extremities exam: Present: normal inspection, full ROM, normal capillary refill. Absent: tenderness, pedal edema, joint swelling, calf tenderness Back exam: Present: normal inspection Neurological exam: Present: alert, oriented X3, CN II-XII intact Psychiatric exam: Present: normal affect, normal mood Skin exam: Present: warm, dry, intact, normal color. Absent: rash Course Vital Signs 02/13/25 02/13/25 19:06 20:28 Temperature 98.0 F Pulse Rate 71 64 Respiratory 17 20 Rate Blood Pressure 150/87 125/97 O2 Sat by Pulse 98 98 Oximetry - Reevaluation(s) Reevaluation #1: 02/13/25 22:00 Medical records reviewed Reevaluation #2: 02/13/25 22:00 Patient symptoms difficult to control pain difficult to control but feeling better Reevaluation #3: 02/13/25 22:00 Patient informed of results and questions answered Reevaluation #4: Was pt. sent in by a medical professional or institution (, PA, TUBE BUILDING MACHINE OPERATOR, urgent care, hospital, or prison...) When possible be specific @ -no Did you speak to anyone other than the patient for history (EMS, parent, family, police, friend...)? What history was obtained from this source @ -no Did you review nursing and triage notes (agree or disagree)? Why? @ -agree Are old charts reviewed (outside hosp., previous admission, EMS record, old EKG, old radiological studies, urgent care reports/EKG's, prison records)? Report findings @ -yes Differential Diagnosis (chest pain, altered mental status, abdominal pain women, abdominal pain men, vaginal bleeding, weakness, fever, dyspnea, syncope, headache, dizziness, GI bleed, back pain, seizure, CVA, palpatations, mental health, musculoskeletal)? @ -prior EKG interpreted by me (3pts min.). @ -yes X-rays interpreted by me (1pt min.). @ -yes negative for acute disease CT interpreted by me (1pt min.). @ -no U/S interpreted by me (1pt. min.). @ -no What testing was considered but not performed or refused? (CT, X-rays, U/S, labs)? Why? @ -none What meds were considered but not given or refused? Why? @ -none Did you discuss the management of the patient with other professionals (pro fessionals i.e. , PA, TUBE BUILDING MACHINE OPERATOR, lab, RT, psych nurse, administrator social welfare, wash and greaser, teacher, safety instruction police officer, telephonic case manager)? Give summary @ -no Was smoking cessation discussed for >3mins.? @ -no Was critical care preformed (if so, how long)? @ -no Were there social determinants of health that impacted care today? How? (Homelessness, low income, unemployed, alcoholism, drug addiction, transportation, low edu. Level, literacy, decrease access to med. care, long-term, rehab)? @ -none Was there de-escalation of care discussed even if they declined (Discuss DNR or withdrawal of care, Hospice)? DNR status @ -no What co-morbidities impacted this encounter? (DM, HTN, Smoking, COPD, CAD, Cancer, CVA, ARF, Chemo, Hep., AIDS, mental health diagnosis, sleep apnea, morbid obesity)? @ -none Was patient admitted / discharged? Hospital course, mention meds given and route, prescriptions, significant lab abnormalities, going to OR and other pertinent info. @ - Undiagnosed new problem with uncertain prognosis? @ -no Drug Therapy requiring intensive monitoring for toxicity (Heparin, Nitro, Insulin, Cardizem)? @ -no Were any procedures done? @ -no Diagnosis/symptom? @ - Acute, or Chronic, or Acute on Chronic? @ -Acute Uncomplicated (without systemic symptoms) or Complicated (systemic symptoms)? @ -Complicated Side effects of treatment? @ -no Exacerbation, Progression, or Severe Exacerbation? @ -exacerbation Poses a threat to life or bodily function? How? (Chest pain, [place], SD, pneumonia, PE, COPD, DKA, ARF, appy, cholecystitis, CVA, Diverticulitis, Homicidal, Suicidal, threat to staff... and all critical care pts) @ -yes Reevaluation #5: Differential Abdominal Pain Men: Appendicitis, cholecystitis, diverticulosis, ischemic bowel, pancreatitis, hepatitis, UTI, gastroenteritis, AAA, incarcerated hernia, bowel obstruction, constipation, inflammatory bowel, hepatitis, peptic ulcer disease, splenic infarction, perforated viscus, testicular torsion, this is not meant to be an all-inclusive list Medical Decision Making - Medical Decision Making 50 male history of alcohol induced pancreatitis patient does have severe abdominal pain here in the ER mild pancreatitis on CT scan mild pancreatitis on labs. Patient would like to prefer discharge home and try oral treatment will be kept n.p.o. aside from clear liquids - Lab Data Result diagrams: 02/13/25 20:18 02/13/25 20:18 Lab Results 02/13/25 02/13/25 02/13/25 Range/Units 20:18 20:18 20:18 WBC 5.64 (4.50-10.00) 10*3/uL RBC 3.75 L (4.40-5.60) 10*6/uL Hgb 14.0 (13.0-17.0) g/dL Hct 39.2 L (39.6-50.0) % MCV 104.5 H (80.0-97.0) fL MCH 37.3 H (27.0-32.0) pg MCHC 35.7 (32.0-37.0) g/dL Plt Count 59 L (140-440) 10*3/uL MPV 11.8 (9.5-12.2) fL Immature Gran % (Auto) 0.4 % Neutrophils % 54.6 % Lymphocytes % 33.7 % Monocytes % 9.4 % Eosinophils % 1.4 % Basophils % 0.5 % Immature Gran # 0.02 (0.00-0.04) 10*3/uL Neutrophils # 3.08 (1.80-7.70) 10*3/uL Lymphocytes # 1.90 (0.90-5.00) 10*3/uL Monocytes # 0.53 (0.20-1.00) 10*3/uL Eosinophils # 0.08 (0.04-0.35) 10*3/uL Basophils # 0.03 (0.00-0.10) 10*3/uL Sodium 137 (137-145) mmol/L Potassium 3.7 (3.5-5.1) mmol/L Chloride 104 (98-107) mmol/L Carbon Dioxide 22 (22-30) mmol/L Anion Gap 11 mmol/L BUN 20 (9-20) mg/dL Creatinine 0.95 (0.66-1.25) mg/dL Est GFR (CKD-EPI)AfAm >90 (>60 ml/min/1.73 sqM) Est GFR (CKD-EPI)NonAf >90 (>60 ml/min/1.73 sqM) Glucose 95 (74-99) mg/dL Plasma Lactic Acid North (0.7-2.0) mmol/L Calcium 9.3 (8.4-10.2) mg/dL Magnesium 1.8 (1.6-2.3) mg/dL Total Bilirubin 0.8 (0.2-1.3) mg/dL AST 152 H (17-59) U/L ALT 118 H (4-49) U/L Alkaline Phosphatase 114 (38-126) U/L Total Protein 7.2 (6.3-8.2) g/dL Albumin 3.6 (3.5-5.0) g/dL Amylase 55 (30-110) U/L Lipase 355 H (23-300) U/L Urine Color Yellow Urine Appearance Clear (Clear) Urine pH 5.5 (5.0-8.0) Ur Specific [place] 1.028 (1.001-1.035) Urine Protein Negative (Negative) Urine Glucose (UA) Negative (Negative) Urine Ketones Negative (Negative) Urine Blood Negative (Negative) Urine Nitrite Negative (Negative) Urine Bilirubin Negative (Negative) Urine Urobilinogen 2.0 (<2.0) mg/dL Ur Leukocyte Esterase Negative (Negative) Serum Alcohol <10 mg/dL 02/13/25 Range/Units 20:18 WBC (4.50-10.00) 10*3/uL RBC (4.40-5.60) 10*6/uL Hgb (13.0-17.0) g/dL Hct (39.6-50.0) % MCV (80.0-97.0) fL MCH (27.0-32.0) pg MCHC (32.0-37.0) g/dL Plt Count (140-440) 10*3/uL MPV (9.5-12.2) fL Immature Gran % (Auto) % Neutrophils % % Lymphocytes % % Monocytes % % Eosinophils % % Basophils % % Immature Gran # (0.00-0.04) 10*3/uL Neutrophils # (1.80-7.70) 10*3/uL Lymphocytes # (0.90-5.00) 10*3/uL Monocytes # (0.20-1.00) 10*3/uL Eosinophils # (0.04-0.35) 10*3/uL Basophils # (0.00-0.10) 10*3/uL Sodium (137-145) mmol/L Potassium (3.5-5.1) mmol/L Chloride (98-107) mmol/L Carbon Dioxide (22-30) mmol/L Anion Gap mmol/L BUN (9-20) mg/dL Creatinine (0.66-1.25) mg/dL Est GFR (CKD-EPI)AfAm (>60 ml/min/1.73 sqM) Est GFR (CKD-EPI)NonAf (>60 ml/min/1.73 sqM) Glucose (74-99) mg/dL Plasma Lactic Acid [place] 1.4 (0.7-2.0) mmol/L Calcium (8.4-10.2) mg/dL Magnesium (1.6-2.3) mg/dL Total Bilirubin (0.2-1.3) mg/dL AST (17-59) U/L ALT (4-49) U/L Alkaline Phosphatase (38-126) U/L Total Protein (6.3-8.2) g/dL Albumin (3.5-5.0) g/dL Amylase (30-110) U/L Lipase (23-300) U/L Urine Color Urine Appearance (Clear) Urine pH (5.0-8.0) Ur Specific [place] (1.001-1.035) Urine Protein (Negative) Urine Glucose (UA) (Negative) Urine Ketones (Negative) Urine Blood (Negative) Urine Nitrite (Negative) Urine Bilirubin (Negative) Urine Urobilinogen (<2.0) mg/dL Ur Leukocyte Esterase (Negative) Serum Alcohol mg/dL - Radiology Data Radiology results: report reviewed (CT abdomen pelvis positive pancreatitis), image reviewed Disposition Clinical Impression: Abdominal pain, Acute pancreatitis, Transaminitis Disposition: HOME SELF-CARE Condition: Good Instructions (If sedation given, give patient instructions): Pancreatitis (ED) Is patient prescribed a controlled substance at d/c from ED?: No Referrals: None,Stated [Primary Care Provider] - 1-2 days Time of Disposition: 22:00
[2025-02-13] MEDS: HYDROmorphone 2 MG/ML 1 ML SYRINGE IVP STA ×2 (20:20→22:12)
[2025-02-13] MEDS: SODIUM CHLORIDE 0.9% 1,000 ML IV ONE (20:21)
[2025-02-13] MEDS: ONDANSETRON 4 MG/2 ML VIAL IVP STA ×2 (20:22→22:13)
[2025-02-13] MEDS: PANTOPRAZOLE 40 MG/10 ML VIAL IVP STA (20:23)
[2025-02-13 20:52] LABS: ALT 118 U/L (4-49); AST 152 U/L (17-59); African American GFR (CKD) >90 (>60 ml/min/1.73 sqM); Albumin 3.6 g/dL (3.5-5.0); Alcohol <10 mg/dL; Alkaline Phosphatase 114 U/L (38-126); Amylase 55 U/L (30-110); Anion Gap 11 mmol/L; Blood Urea Nitrogen 20 mg/dL (9-20); Calcium 9.3 mg/dL (8.4-10.2); Carbon Dioxide 22 mmol/L (22-30); Chloride 104 mmol/L (98-107); Glucose 95 mg/dL (74-99); Lipase 355 U/L (23-300); Magnesium 1.8 mg/dL (1.6-2.3); Non-African American GFR(CKD) >90 (>60 ml/min/1.73 sqM); Potassium 3.7 mmol/L (3.5-5.1); Sodium 137 mmol/L (137-145); Total Bilirubin 0.8 mg/dL (0.2-1.3); Total Protein 7.2 g/dL (6.3-8.2)
[2025-02-13 21:19] LABS: Basophils # (A) 0.03 10*3/uL (0.00-0.10); Basophils % (A) 0.5 %; Eosinophils # (A) 0.08 10*3/uL (0.04-0.35); Eosinophils % (A) 1.4 %; HCT 39.2 % (39.6-50.0); Lymphocytes % (A) 33.7 %; MCH 37.3 pg (27.0-32.0); MCHC 35.7 g/dL (32.0-37.0); MCV 104.5 fL (80.0-97.0); Mean Platelet Volume 11.8 fL (9.5-12.2); Monocytes # (A) 0.53 10*3/uL (0.20-1.00); Monocytes % (A) 9.4 %; Neutrophils # (A) 3.08 10*3/uL (1.80-7.70); Neutrophils % (A) 54.6 %; RBC 3.75 10*6/uL (4.40-5.60); RDW 13.6 % (11.5-14.5); WBC 5.64 10*3/uL (4.50-10.00)
[2025-02-13 21:24] LABS: Platelet Count 59 10*3/uL (140-440)
--- NOTE | 2025-02-13 21:42 | CT ---
EXAMINATION TYPE: CT abdomen pelvis wo con DATE OF EXAM: 02/13/2025 9:23 PM COMPARISON: CT abdomen pelvis most recent from 07/29/2024. CLINICAL INDICATION: Male, 50 years old with history of abdominal pain; Pt coming in for abdominal pa in, pt states lower back bothering him as well. was just here on . 2 hernia repairs one on t he right lower abdomen, one on the left lower abdomen. hx of pancreatitis TECHNIQUE: Axial CT abdomen pelvis wo con;Sagittal and coronal reformats were created on a separate workstation. Contrast used: mL of , (none if empty) Oral contrast used: without Oral Contrast (none if empty) CT DLP: 657.5 mGycm, Automated exposure control for dose reduction was used. FINDINGS: LOWER CHEST: Unremarkable ABDOMEN LIVER: Nodular contour to liver. Correlate lobe hypertrophy changes. GALLBLADDER AND BILE DUCTS: Unremarkable. PANCREAS: Unremarkable. SPLEEN: Unremarkable. ADRENAL GLANDS: Unremarkable. KIDNEYS AND URETERS: No evidence of hydronephrosis or obstructing renal calculus. The ureters are unr emarkable. PELVIS BLADDER: No evidence for wall thickening or mass given limitations of exam. REPRODUCTIVE: Unremarkable. ABDOMEN & PELVIS STOMACH AND BOWEL: No evidence of bowel obstruction. PERITONEUM/RETROPERITONEUM: No evidence of pneumoperitoneum or free fluid. VASCULATURE: No evidence of aortic aneurysm. Multiple varicosities are seen in the right abdomen as s een on prior possibly subjectively increased from prior. The portal vein measures up to 17 mm in thic kness. MUSCULOSKELETAL: No acute osseous abnormalities, grade 2 anterolisthesis of L3 on L4 with bilateral s pondylolysis with moderate to severe spinal canal stenosis. LYMPH NODES: No gross evidence for lymphadenopathy. SOFT TISSUE/ABDOMINAL WALL: No inguinal hernia is visualized. IMPRESSION: 1. Mild inflammation changes around thee pancreas uncinate process. Correlate serum markers for panc reatitis. 2. Nodular contour to liver suggestive of hepatic cirrhosis. Varicosities in the mesentery possibly secondary to portal hypertension given dilated portal vein. 3. No inguinal hernia is visualized. No ventral wall hernia is visualized. 4. Grade 2 anterolisthesis of L3 on L4 with bilateral spondylolysis. Findings stable from 07/29/2024 . This results in moderate to severe spinal canal stenosis. [facility], , 02/13/2025 9:40 PM
[2025-02-13 21:47] LABS: Appearance,Urine Clear (Clear); Bilirubin,Urine Negative (Negative); Blood,Urine Negative (Negative); Color,Urine Yellow; Glucose,Urine (UA) Negative (Negative); Ketones,Urine Negative (Negative); Leukocyte Esterase,Urine Negative (Negative); Nitrite,Urine Negative (Negative); PH, Urine 5.5 (5.0-8.0); Protein,Urine Negative (Negative); Specific Gravity,Urine 1.028 (1.001-1.035)
[2025-02-13 22:11] VITALS: RESP 17
[2025-02-13] MEDS: ONDANSETRON 4 MG ODT STARTER PACK 2 TAB BTL PO STA (22:16)
[2025-02-13] MEDS: ACET/COD 300 MG/30 MG STARTER PACK 6 TAB BTL PO STA (22:17)
[2025-02-13] MEDS: traMADol 50 MG STARTER PACK 3 TAB BTL PO STA (22:18)
[2025-02-13 22:29] VITALS: BP 129/89; PULSE 56; TEMP 98.3
== END 2025-02-13 22:31 | disposition home or self-care (01) ==
LOC: EC 18:51
DX: K85.90 Acute pancreatitis without necrosis or infection, unspecified (principal); R74.01 Elevation of levels of liver transaminase levels; F17.200 Nicotine dependence, unspecified, uncomplicated; Z88.7 Allergy status to serum and vaccine
CPT/HCPCS: 36415; 80053; 82150; 83605; 83690; 83735; 85025; 81003; 74176; 99284; 96374; 96375 ×2; 96376 ×2; 96361; G0480; J1171; J2405; S0119; J2470; 80320